=== PATIENT | female | born 1995 | race American Indian/Alaskan Native ===

== ENCOUNTER 2018-03-30 19:41 | Emergency (ER) | payer MEDICAID ==
[2018-03-30] MEDS ORDERED: NACL 0.9% 1000 ML 1,000 ML IV ONE (19:50)
[2018-03-30 20:51] LABS: Basophils % (Auto) 0.5 % (0.0-1.8); Eosinophils # (Auto) 0.1 K/mm3 (0.0-0.4); Eosinophils % (Auto) 0.9 % (0.0-4.3); Hematocrit 37.8 % (30.3-42.9); Hemoglobin 12.9 gm/dl (10.1-14.3); Mean Corpuscular HGB Conc 34 % (30-34); Mean Corpuscular Hemoglobin 31 pg (28-32); Mean Corpuscular Volume 92 fl (79-97); Monocytes # (Auto) 1.1 K/mm3 (0.0-0.8); Monocytes % (Auto) 15.1 % (0.0-7.3); Platelet Count 310 K/mm3 (140-440); Red Blood Count 4.12 M/mm3 (3.65-5.03); Red Cell Distribution Width 13.3 % (13.2-15.2)
[2018-03-30 21:18] LABS: Alanine Aminotransferase 11 units/L (7-56); Albumin 4.1 g/dL (3.9-5); BUN/Creatinine Ratio 22; Blood Urea Nitrogen 13 mg/dL (7-17); Calcium 9.4 mg/dL (8.4-10.2); Hemolysis Index 0; Lipase 38 units/L (13-60)
[2018-03-30 22:06] LABS: HCG Qualitative,Urine Positive (Negative)
[2018-03-30 22:09] LABS: Bilirubin,Urine NEG (Negative); Blood,Urine NEG (Negative); Color,Urine Yellow (Yellow); Mucus,Urine FEW /HPF; Protein,Urine <15 mg/dL mg/dL (Negative); Urobilinogen,Urine < 2.0 mg/dL (<2.0)
--- NOTE | 2018-03-30 22:25 | Emergency Department Report ---
ED Abdominal Pain HPI - General Chief Complaint: Abdominal Pain Stated Complaint: ABDOMINAL PAIN Time Seen by Provider: 03/30/18 22:17 Source: patient Mode of arrival: Ambulatory Limitations: No Limitations - History of Present Illness Initial Comments: Previously healthy 22-year-old woman presents with 1 two-day history of mild to moderate left sided abdominal discomfort, along with some vaginal spotting. Pain is moderate in intensity, 4-5, somewhat aching, occasionally cramping, without radiation, and no secondary symptoms, no fever chills or diaphoresis, no dysuria. She's had mild nausea, only a couple of episodes of mild vomiting, no diarrhea. She's not had a fever chills or diaphoresis. Patient has a variable menstrual cycle, last regular menstrual cycle was mid Jan, 2018, and she only had a couple of days of spotting early to mid February 2018, and had been spotting over the past couple days as well. She notes that her menstrual cycle is generally irregular, and this was not any cause of concern. She is sexually active, does not use contraception. She is 1 para 1, with one mL child , born normally at term, just under one year ago. She is in good general health otherwise, has no significant discomfort at this time, no fever chills or diaphoresis. MD Complaint: abdominal pain Severity scale (0 -10): 5 - Related Data Previous Rx's Medication Instructions Recorded Last Taken Type Metoclopramide HCl [Reglan TAB] 5 mg PO Q6HR PRN #10 tablet 03/31/18 Unknown Rx Allergies Allergy/AdvReac Type Severity Reaction Status Date / Time amoxicillin Allergy Swelling Verified 03/30/18 19:49 Penicillins Allergy Swelling Verified 03/30/18 19:49 ED Review of Systems ROS: Stated complaint: ABDOMINAL PAIN Other details as noted in HPI Comment: All other systems reviewed and negative Constitutional: denies: chills, fever Eyes: denies: eye pain, eye discharge, vision change ENT: denies: throat pain Respiratory: denies: cough, orthopnea Cardiovascular: denies: chest pain, dyspnea on exertion, edema Endocrine: no symptoms reported Gastrointestinal: as per HPI, abdominal pain, nausea, vomiting. denies: diarrhea Genitourinary: denies: urgency, dysuria, frequency, hematuria Musculoskeletal: denies: back pain, joint swelling, arthralgia Skin: denies: rash, lesions Neurological: denies: headache, weakness, paresthesias Psychiatric: denies: anxiety, depression Hematological/Lymphatic: denies: easy bleeding, easy bruising ED Past Medical Hx - Past Medical History Previous Medical History?: No - Surgical History Past Surgical History?: Yes Additional Surgical History: right arm. d&c - Social History Smoking Status: Former Smoker Substance Use Type: None Other Social History: Last menstrual period 02/10/2018 - Medications Home Medications: Home Medications Medication Instructions Recorded Confirmed Last Taken Type Metoclopramide HCl [Reglan TAB] 5 mg PO Q6HR PRN #10 tablet 03/31/18 Unknown Rx ED Physical Exam - General Limitations: No Limitations General appearance: alert, in no apparent distress - Head Head exam: Present: atraumatic, normocephalic - Eye Eye exam: Present: normal appearance - Neck Neck exam: Present: normal inspection, full ROM. Absent: tenderness, meningismus - Respiratory Respiratory exam: Present: normal lung sounds bilaterally. Absent: respiratory distress - Cardiovascular Cardiovascular Exam: Present: regular rate, normal rhythm. Absent: systolic murmur, diastolic murmur, rubs, gallop - GI/Abdominal GI/Abdominal exam: Present: soft, normal bowel sounds. Absent: distended, tenderness, guarding, rebound - Rectal Rectal exam: Present: deferred - Extremities Exam Extremities exam: Present: normal inspection. Absent: pedal edema, calf tenderness - Back Exam Back exam: Present: normal inspection - Neurological Exam Neurological exam: Present: alert, oriented X3 - Psychiatric Psychiatric exam: Present: normal affect, normal mood - Skin Skin exam: Present: warm, dry, intact, normal color. Absent: rash ED Course Vital Signs 03/30/18 03/30/18 19:39 19:45 Temperature 36.9 C 36.9 C Pulse Rate 73 72 Respiratory 18 18 Rate Blood Pressure 115/61 115/61 O2 Sat by Pulse 99 99 Oximetry ED Medical Decision Making - Lab Data Result diagrams: 03/30/18 20:10 03/30/18 20:10 - Radiology Data Radiology results: report reviewed (abdominal and transvaginal ultrasound show a single intrauterine , with pole present, with heart rate of 110 bpm. There is a small ovarian cyst on right, and a small amount of free fluid. ) - Medical Decision Making Patient has confirmed intrauterine , date 6 weeks, 0 days, patient is clinically stable, will be discharged home with oral hydration, recommendation for vitamins and obstetric follow-up. - Differential Diagnosis intrauterine , ectopic , vaginal bleeding, Critical Care Time: No Critical care attestation.: If time is entered above; I have spent that time in minutes in the direct care of this critically ill patient, excluding procedure time. ED Disposition Clinical Impression: Qualifiers: Weeks of gestation: less than 8 weeks Qualified Code(s): Z3A.01 - Less than 8 weeks gestation of Disposition: DC-01 TO HOME OR SELFCARE Is pt being admited?: No Does the pt Need Aspirin: No Condition: Stable Instructions: (ED) Additional Instructions: Follow-up with spice miller in the next week or so, for care. We have prescribed vitamins, continues to start taking these daily as well. Take regular Tylenol for discomfort, and we have prescribed ondansetron if he have any significant nausea or vomiting. Plenty of fluids to maintain hydration. Prescriptions: Metoclopramide HCl [Reglan TAB] 5 mg PO Q6HR PRN #10 tablet PRN Reason: Nausea Referrals: PRIMARY CARE, [Primary Care Provider] - 3-5 Days ELLIE PERRY MD [Staff Physician] - 3-5 Days Time of Disposition: 00:13
--- NOTE | 2018-03-30 23:55 | Ultrasound Report ---
FINAL REPORT PROCEDURE: Transabdominal obstetrical ultrasound. TECHNIQUE: Real-time transabdominal sonography of the uterus, placenta, amniotic fluid, adnexa, and fetus was performed with image documentation. Measurements were obtained to determine age/size. M-mode Doppler was used to document heartbeat. CPT 70598 HISTORY: Abdominal pain, vaginal spotting, new . COMPARISON: No prior studies are available for comparison. FINDINGS: The uterus measures 9.2 centimeters x 5.4 centimeters x 6.6 centimeters. The myometrium is grossly normal. There is an intrauterine gestational sac. A yolk sac is visible. Neither ovary is identified. IMPRESSION: Early intrauterine gestational sac.
--- NOTE | 2018-03-30 23:58 | Ultrasound Report ---
FINAL REPORT PROCEDURE: Transvaginal obstetrical ultrasound. TECHNIQUE: Real-time transvaginal sonography of the uterus, placenta, amniotic fluid, adnexa, and fetus was performed with image documentation. Measurements were obtained to determine age/size. M-mode Doppler was used to document heartbeat. CPT 93085 HISTORY: New , vaginal spotting, pelvic pain. COMPARISON: No prior studies are available for comparison. FINDINGS: There is an intrauterine gestational sac. A yolk sac and pole are visible. Cardiac activity is documented at 110 beats per minute. The crown-rump length measurement is 3.4 millimeters. This indicates a menstrual age of 6 weeks 0 days. The estimated date of confinement is 11/23/2018. There is a small amount of free fluid in the cul-de-sac. Both ovaries appear normal in size. There is normal ovarian blood flow demonstrated by color flow imaging. There is a simple cyst in the left ovary with a maximum diameter of 1.9 centimeters. IMPRESSION: Viable intrauterine with a menstrual age of 6 weeks 0 days. Small left ovarian cyst.
[2018-03-31 00:38] VITALS: BP 105/55
== END 2018-03-31 00:36 | disposition home or self-care (01) ==
LOC: EDBD → ED 19:41
DX: O26.891 Other specified pregnancy related conditions, first trimester (principal); R10.9 Unspecified abdominal pain; O26.851 Spotting complicating pregnancy, first trimester; O21.9 Vomiting of pregnancy, unspecified; Z3A.01 Less than 8 weeks gestation of pregnancy; Z87.891 Personal history of nicotine dependence; Z88.1 Allergy status to other antibiotic agents; Z88.0 Allergy status to penicillin
CPT/HCPCS: 36415; 76801; 76817; 80053; 81001; 81025; 83690; 84702; 85025; 96360; 99284; J7030

== ENCOUNTER 2018-04-02 13:11 | Emergency (ER) | payer MEDICAID ==
[2018-04-02 13:21] VITALS: BP 111/64
--- NOTE | 2018-04-02 13:38 | Emergency Department Report ---
<CLARKE RICHARDSON - Last Filed: 04/02/18 15:13> ED HPI - General Chief complaint: Abdominal Pain Stated complaint: PAIN Time Seen by Provider: 04/02/18 13:35 Source: patient Mode of arrival: Ambulatory Limitations: No Limitations - History of Present Illness Initial comments: This is a 22-year-old female nontoxic, well nourished in appearance, no acute signs of distress presents to the ED with c/o of pelvic pain x6 days. Patient also stated has right upper abdominal and rating to right back x6 days. Patient stated she was seen 6 days ago. Patient describes pain as cramping intermittently with leve of 3/10. Patient denies any vaginal discharge or foul odor. Patient denies any vaginal bleeding. Patient denies any nausea, vomiting, chest pain, shortness of breathe, fever, chills, headache, stiff neck , numbness, tingling. Patient denies any urinary symptoms. Patient stated allergies to PCN but denies any significant PMH. MD Complaint: abdominal pain -: days(s) (6) Location: pelvis Radiation: none Severity: mild Severity scale (0 -10): 3 Quality: cramping Consistency: intermittent Improves with: none Worsens with: none Associated symptoms: abdominal pain. denies: nausea/vomiting, vaginal bleeding , vaginal discharge, dysuria, headache, vision changes, malaise, dysparuenia, rash, seizure, shortness of breath, syncope, weakness Vaginal bleeding: none :: Yes Number of weeks : 6 Pre-leticia care: none - Related Data Previous Rx's Medication Instructions Recorded Last Taken Type Metoclopramide HCl [Reglan TAB] 5 mg PO Q6HR PRN #10 tablet 03/31/18 Unknown Rx Acetaminophen 500 mg PO Q6H PRN #30 tablet 04/02/18 Unknown Rx Allergies Allergy/AdvReac Type Severity Reaction Status Date / Time amoxicillin Allergy Swelling Verified 03/30/18 19:49 Penicillins Allergy Swelling Verified 03/30/18 19:49 ED Review of Systems ROS: Stated complaint: PAIN Other details as noted in HPI Constitutional: denies: chills, fever Eyes: denies: eye pain, eye discharge, vision change ENT: denies: ear pain, throat pain Respiratory: denies: cough, shortness of breath, wheezing Cardiovascular: denies: chest pain, palpitations Endocrine: no symptoms reported Gastrointestinal: abdominal pain. denies: nausea, vomiting, diarrhea Genitourinary: denies: urgency, dysuria, discharge Musculoskeletal: denies: back pain, joint swelling, arthralgia Skin: denies: rash, lesions Neurological: denies: headache, weakness, paresthesias Psychiatric: denies: anxiety, depression Hematological/Lymphatic: denies: easy bleeding, easy bruising ED Past Medical Hx - Past Medical History Previous Medical History?: No - Surgical History Past Surgical History?: Yes Additional Surgical History: right arm. d&c - Social History Smoking Status: Never Smoker Substance Use Type: None - Medications Home Medications: Home Medications Medication Instructions Recorded Confirmed Last Taken Type Metoclopramide HCl [Reglan TAB] 5 mg PO Q6HR PRN #10 tablet 03/31/18 Unknown Rx Acetaminophen 500 mg PO Q6H PRN #30 tablet 04/02/18 Unknown Rx ED Physical Exam - General Limitations: No Limitations General appearance: alert, in no apparent distress - Head Head exam: Present: atraumatic, normocephalic - Eye Eye exam: Present: normal appearance Pupils: Present: normal accommodation - ENT ENT exam: Present: normal exam, mucous membranes moist - Neck Neck exam: Present: normal inspection, full ROM. Absent: tenderness, meningismus, lymphadenopathy - Respiratory Respiratory exam: Present: normal lung sounds bilaterally. Absent: respiratory distress, wheezes, rales, rhonchi, stridor, chest wall tenderness, accessory muscle use, decreased breath sounds, prolonged expiratory - Cardiovascular Cardiovascular Exam: Present: regular rate, normal rhythm, normal heart sounds. Absent: bradycardia, tachycardia, irregular rhythm, systolic murmur, diastolic murmur, rubs, gallop - GI/Abdominal GI/Abdominal exam: Present: soft, tenderness (RUQ), normal bowel sounds. Absent : distended, guarding, rebound, rigid, diminished bowel sounds - Expanded GI/Abdominal Exam Expanded GI/Abdominal exam: Absent: psoas sign, obturator sign, heel tap sign, Herzog's sign, Rovsing's sign, tenderness at Mcburney's Point, ascites - Rectal Rectal exam: Present: deferred - Extremities Exam Extremities exam: Present: normal inspection, full ROM, normal capillary refill. Absent: tenderness - Back Exam Back exam: Present: normal inspection, full ROM. Absent: tenderness, CVA tenderness (R), CVA tenderness (L), muscle spasm, paraspinal tenderness, vertebral tenderness, rash noted - Neurological Exam Neurological exam: Present: alert, oriented X3, normal gait - Psychiatric Psychiatric exam: Present: normal affect, normal mood - Skin Skin exam: Present: warm, dry, intact, normal color. Absent: rash ED Course Vital Signs 04/02/18 13:17 Temperature 98.5 F Pulse Rate 81 Respiratory 16 Rate Blood Pressure 111/64 O2 Sat by Pulse 97 Oximetry - Reevaluation(s) Reevaluation #1: 04/02/18 14:00 Patient is speaking in full sentences with no signs of distress noted. ED Medical Decision Making - Medical Decision Making This is a 22-year-old female that presents with cholelithiasis and related pelvic cramping. Patient is stable and was examined by me. There is slight RUQ quad tenderness. Negative signs of symptoms of appendicitis. US of abdomen obtained and dictated by the radiologist. PAtient has a normal OB and transvaginal US 2 days ago with 110 beats per min and single live IUP. Labs and Ua ordered but patient left without telling anyone. Patient was called back and stated she was outside and I instructed to her that she has abnormal US and needs to come back to the ED and stated she is on her way but patient never came back. I then called patient 2 more times and went to voicemail. Patient left AMA without anyone knowing. Critical care attestation.: If time is entered above; I have spent that time in minutes in the direct care of this critically ill patient, excluding procedure time. ED Disposition Disposition: DC-07 LEFT AGAINST MED ADVICE Is pt being admited?: No Does the pt Need Aspirin: No Condition: Stable Instructions: Acetaminophen (By mouth), Biliary Colic (ED), Abdominal Pain (ED) Additional Instructions: Follow-up with a primary care/OBGYN doctor in 3-5 days or if symptoms worsen and continue return to emergency room as soon as possible. Prescriptions: Acetaminophen 500 mg PO Q6H PRN #30 tablet PRN Reason: Pain , Severe (7-10) Referrals: PRIMARY CARE, [Primary Care Provider] - 3-5 Days DEACON PERRY MD [Staff Physician] - 3-5 Days [facility] [Provider Group] - 3-[address] [facility] [place] [Outside] - 3-5 Days [facility] [Outside] - 3-5 Days Forms: Work/School Release Form(ED) <CAESAR ARTIS - Last Filed: 04/02/18 17:04> ED Medical Decision Making - Medical Decision Making I did not see this patient. I was available for consultation the entire time the patient was in the department. I have reviewed the GOAT HERDER/PAs note and agree with the plan.
[2018-04-02] MEDS ORDERED: TYLENOL PO ONE (13:40)
--- NOTE | 2018-04-02 14:24 | Ultrasound Report ---
ULTRASOUND ABDOMEN COMPLETE: TECHNIQUE: Transabdominal ultrasound with color Doppler interrogation. HISTORY: Abdominal/pelvic pain. COMPARISON: none. FINDINGS: LIVER: Normal. BILIARY SYSTEM: There are a few gallstones in the gallbladder measuring up to 1.2 cm. No abnormal dilatation, wall thickening or surrounding fluid. The CBD measures 3 mm. PANCREAS: Partially obscured by bowel gas. No gross abnormality. SPLEEN: Normal. KIDNEYS: Normal. AORTA/IVC: Normal. ASCITES: None. IMPRESSION: Cholelithiasis. No evidence for acute cholecystitis.
[2018-04-02 14:27] LABS: Bacteria,Urine 1+ /HPF (Negative); Bilirubin,Urine NEG (Negative); Blood,Urine NEG (Negative); Color,Urine Yellow (Yellow); Mucus,Urine FEW /HPF; Protein,Urine <15 mg/dL mg/dL (Negative); Urobilinogen,Urine < 2.0 mg/dL (<2.0)
== END 2018-04-02 15:25 | disposition left against medical advice (07) ==
LOC: ED 13:11
DX: O26.891 Other specified pregnancy related conditions, first trimester (principal); R10.2 Pelvic and perineal pain; Z88.0 Allergy status to penicillin; Z88.1 Allergy status to other antibiotic agents; Z3A.01 Less than 8 weeks gestation of pregnancy
CPT/HCPCS: 76700; 81001

== ENCOUNTER 2018-11-10 12:05 | Outpatient (CLI) | payer MEDICAID ==
[2018-11-10 12:45] VITALS: BP 121/65
== END 2018-11-10 13:59 | disposition home or self-care (01) ==
LOC: TRG 12:05
PROVIDERS: ATTEND Obstetrics & Gynecology
DX: O47.1 False labor at or after 37 completed weeks of gestation (principal); Z3A.39 39 weeks gestation of pregnancy; Z87.891 Personal history of nicotine dependence

== ENCOUNTER 2019-03-08 16:23 | Emergency (ER) | payer MEDICAID ==
[2019-03-08 16:29] VITALS: BP 117/77
[2019-03-08] MEDS ORDERED: XYLOCAINE 1% MPF 5 mL INFILTRATI ONE (18:31)
[2019-03-08] MEDS ORDERED: ULTRAM PO ONE (18:59)
--- NOTE | 2019-03-08 19:10 | Emergency Department Report ---
- General Chief complaint: Skin/Abscess/Foreign Body Stated complaint: BOIL UNDER ARM Time Seen by Provider: 03/08/19 18:31 Source: patient Mode of arrival: Ambulatory Limitations: No Limitations - History of Present Illness Initial comments: Patient's female who presents with left axillary abscess this is a recurrent problem for this patient states that she has 1-2 annually that require I&D there is no fever no chills , left ac 2x3 abscess, erythema pain fluctuant no drainage MD complaint: abscess/boil Onset/Timin -: days(s) Tetanus Up to Date: yes Location: LUE Severity: moderate Severity scale (0 -10): 5 Quality: burning, aching Consistency: constant Improves with: none Worsens with: palpation, movement Context: none Associated symptoms: itching Treatments Prior to Arrival: none - Related Data Previous Rx's Medication Instructions Recorded Last Taken Type Metoclopramide HCl [Reglan TAB] 5 mg PO Q6HR PRN #10 tablet 03/31/18 Unknown Rx Acetaminophen 500 mg PO Q6H PRN #30 tablet 04/02/18 Unknown Rx Sulfamethoxazole/Trimethoprim 1 each PO BID 14 Days #28 tablet 03/08/19 Unknown Rx [Bactrim DS TAB] traMADol [Ultram] 50 mg PO Q6HR PRN #12 tablet 03/08/19 Unknown Rx Allergies Allergy/AdvReac Type Severity Reaction Status Date / Time amoxicillin Allergy Swelling Verified 03/08/19 16:29 Penicillins Allergy Swelling Verified 03/08/19 16:29 Abscess Boil HPI - HPI Chief Complaint: Skin/Abscess/Foreign Body Stated Complaint: BOIL UNDER ARM Time Seen by Provider: 03/08/19 18:31 Location: Upper Extremity (left axillary) History: Yes Pain, Yes Previous History, No Fever, No Purulent Drainage, No Numbness, No Foreign Body, No Insect Bite Home Medications: Previous Rx's Medication Instructions Recorded Last Taken Type Metoclopramide HCl [Reglan TAB] 5 mg PO Q6HR PRN #10 tablet 03/31/18 Unknown Rx Acetaminophen 500 mg PO Q6H PRN #30 tablet 04/02/18 Unknown Rx Sulfamethoxazole/Trimethoprim 1 each PO BID 14 Days #28 tablet 03/08/19 Unknown Rx [Bactrim DS TAB] traMADol [Ultram] 50 mg PO Q6HR PRN #12 tablet 03/08/19 Unknown Rx Allergies/Adverse Reactions: Allergies Allergy/AdvReac Type Severity Reaction Status Date / Time amoxicillin Allergy Swelling Verified 03/08/19 16:29 Penicillins Allergy Swelling Verified 03/08/19 16:29 ED Review of Systems ROS: Stated complaint: BOIL UNDER ARM Other details as noted in HPI Constitutional: denies: chills, fever Eyes: denies: eye pain, eye discharge, vision change ENT: denies: ear pain, throat pain Respiratory: denies: cough, shortness of breath, wheezing Cardiovascular: denies: chest pain, palpitations Endocrine: no symptoms reported Gastrointestinal: as per HPI. denies: abdominal pain, nausea, diarrhea Genitourinary: denies: urgency, dysuria, discharge Musculoskeletal: denies: back pain, joint swelling, arthralgia Skin: lesions (abscess left axillary ) Neurological: denies: headache, weakness, paresthesias Psychiatric: denies: anxiety, depression Hematological/Lymphatic: denies: easy bleeding, easy bruising ED Past Medical Hx - Past Medical History Previous Medical History?: No Hx Hypertension: No Hx Diabetes: No Hx Deep Vein Thrombosis: No Hx Renal Disease: No Hx Sickle Cell Disease: No Hx Seizures: No Hx Asthma: No Hx HIV: No - Surgical History Past Surgical History?: Yes Additional Surgical History: right arm. d&c - Social History Smoking Status: Current Some Day Smoker Substance Use Type: Marijuana - Medications Home Medications: Home Medications Medication Instructions Recorded Confirmed Last Taken Type Metoclopramide HCl [Reglan TAB] 5 mg PO Q6HR PRN #10 tablet 03/31/18 Unknown Rx Acetaminophen 500 mg PO Q6H PRN #30 tablet 04/02/18 Unknown Rx Sulfamethoxazole/Trimethoprim 1 each PO BID 14 Days #28 tablet 03/08/19 Unknown Rx [Bactrim DS TAB] traMADol [Ultram] 50 mg PO Q6HR PRN #12 tablet 03/08/19 Unknown Rx ED Physical Exam - General Limitations: No Limitations General appearance: alert, in no apparent distress - Head Head exam: Present: atraumatic, normocephalic - Eye Eye exam: Present: normal appearance, PERRL Pupils: Present: normal accommodation - ENT ENT exam: Present: mucous membranes moist, TM's normal bilaterally - Neck Neck exam: Present: normal inspection, full ROM. Absent: tenderness - Respiratory Respiratory exam: Present: normal lung sounds bilaterally. Absent: respiratory distress, wheezes, stridor, chest wall tenderness - Cardiovascular Cardiovascular Exam: Present: regular rate, normal rhythm, normal heart sounds. Absent: systolic murmur, diastolic murmur, rubs, gallop - GI/Abdominal GI/Abdominal exam: Present: soft, normal bowel sounds. Absent: distended, tenderness, bruit, hernia - Rectal Rectal exam: Present: deferred - Extremities Exam Extremities exam: Present: normal inspection, full ROM, tenderness (left axillary abscess 2x3 cm fluctuant erythema warm to touch ), normal capillary refill. Absent: pedal edema, joint swelling, calf tenderness - Expanded Upper Extremity Exam Left General: Present: other (axillary abscess as above ) - Back Exam Back exam: Present: normal inspection, full ROM. Absent: tenderness, CVA tenderness (R), CVA tenderness (L), muscle spasm, rash noted - Neurological Exam Neurological exam: Present: alert, CN II-XII intact, normal gait, reflexes normal. Absent: oriented X3 - Psychiatric Psychiatric exam: Present: normal affect, normal mood - Skin Skin exam: Present: warm, dry, intact, normal color, erythema (fluctuant erythema painful to touch ). Absent: rash ED Course Vital Signs 03/08/19 16:25 Pulse Rate 82 Respiratory 16 Rate Blood Pressure 117/77 [Right] O2 Sat by Pulse 100 Oximetry - I & D Left Arm Type of Procedure: Simple Site: left axillary abscess Blade Size: 11 I & D Procedure: betadine prep, sterile dressing applied Progress: left axillary abscess 2x3 cm fluctuant erythema pain warm to touch , site cleaned with betadine solution anesthesia with 1% lidocaine plain x 2 mm, incision with 11 labde scaple x 1 cm, moderate purulent malodorous output , wound irrigated with 40 cc sterile salline pt refused packing plan dc to home wtih rx of bactrim ds po x 14 days follow up with General surgery pt given wound care instructions verbalized agreement and understanding of same. all bleeding is controlled ED Medical Decision Making - Medical Decision Making left axillary abscess for I&D see procedure note, all bleeding is controlled pt for dc to home with rx for bactrim and tramadol will follow up with [facility] in 2 days for wound check pt verbalized agreement and understanding of discharge plan to home in stable condition at this time. rom inact cms intact all bleeding controlled sterile dressing intact Critical care attestation.: If time is entered above; I have spent that time in minutes in the direct care of this critically ill patient, excluding procedure time. ED Disposition Clinical Impression: Abscess of axilla, left Disposition: DC-01 TO HOME OR SELFCARE Is pt being admited?: No Does the pt Need Aspirin: No Condition: Stable Instructions: Abscess (ED) Prescriptions: Sulfamethoxazole/Trimethoprim [Bactrim DS TAB] 1 each PO BID 14 Days #28 tablet traMADol [Ultram] 50 mg PO Q6HR PRN #12 tablet PRN Reason: Pain Referrals: DIANE CRYSTAL MD [Primary Care Provider] - 3-5 Days [facility] [Outside] - 3-5 Days Forms: Work/School Release Form(ED) Time of Disposition: 19:19
== END 2019-03-08 19:23 | disposition home or self-care (01) ==
LOC: ED 16:23
DX: L02.412 Cutaneous abscess of left axilla (principal); F17.200 Nicotine dependence, unspecified, uncomplicated; F12.90 Cannabis use, unspecified, uncomplicated; Z88.1 Allergy status to other antibiotic agents; Z88.0 Allergy status to penicillin; Z79.899 Other long term (current) drug therapy
CPT/HCPCS: 99282

== ENCOUNTER 2021-03-17 00:52 | Emergency (ER) | payer MEDICAID ==
[2021-03-17 01:30] VITALS: BP 119/63
--- NOTE | 2021-03-17 02:55 | Emergency Department Report ---
ED General Adult HPI - General Chief complaint: Earache Stated complaint: LEFT SIDE OF FACE/EARS HURT Time Seen by Provider: 03/17/21 02:45 Source: patient Mode of arrival: Ambulatory Limitations: No Limitations - History of Present Illness Initial comments: Patient a 25-year-old female who presents for left ear pain x4 days. Pain described as 7/10 aching pain exacerbated by movement and palpation. There is no ear drainage. Patient denies throat pain does endorse intermittent headache. There are no dizziness, lightheadedness no nausea or vomiting. - Related Data Previous Rx's Medication Instructions Recorded Last Taken Type Metoclopramide HCl [Reglan TAB] 5 mg PO Q6HR PRN #10 tablet 03/31/18 Unknown Rx Acetaminophen 500 mg PO Q6H PRN #30 tablet 04/02/18 Unknown Rx Sulfamethoxazole/Trimethoprim 1 each PO BID 14 Days #28 tablet 03/08/19 Unknown Rx [Bactrim DS TAB] traMADoL [Ultram] 50 mg PO Q6HR PRN #12 tablet 03/08/19 Unknown Rx Azithromycin Oral Liqd [Zithromax 500 mg PO QDAY 5 Days #60 ml 03/17/21 Unknown Rx 200 MG/5 ML ORAL LIQ] Ibuprofen [Children's Motrin] 800 mg PO Q8H PRN #480 ml 03/17/21 Unknown Rx Allergies Allergy/AdvReac Type Severity Reaction Status Date / Time amoxicillin Allergy Swelling Verified 03/08/19 16:29 Penicillins Allergy Swelling Verified 03/08/19 16:29 ED Review of Systems ROS: Stated complaint: LEFT SIDE OF FACE/EARS HURT Other details as noted in HPI Constitutional: denies: chills, fever Eyes: denies: eye pain, eye discharge, vision change ENT: ear pain Respiratory: denies: cough, shortness of breath, wheezing Cardiovascular: denies: chest pain, palpitations Endocrine: no symptoms reported Gastrointestinal: denies: abdominal pain, nausea, diarrhea Genitourinary: denies: urgency, dysuria, discharge Musculoskeletal: denies: back pain, joint swelling, arthralgia Skin: denies: rash, lesions Neurological: denies: headache, weakness, paresthesias Psychiatric: denies: anxiety, depression Hematological/Lymphatic: denies: easy bleeding, easy bruising ED Past Medical Hx - Past Medical History Hx Hypertension: No Hx Diabetes: No Hx Deep Vein Thrombosis: No Hx Renal Disease: No Hx Sickle Cell Disease: No Hx Seizures: No Hx Asthma: No Hx HIV: No - Surgical History Additional Surgical History: right arm. d&c - Social History Smoking Status: Never Smoker - Medications Home Medications: Home Medications Medication Instructions Recorded Confirmed Last Taken Type Metoclopramide HCl [Reglan TAB] 5 mg PO Q6HR PRN #10 tablet 03/31/18 Unknown Rx Acetaminophen 500 mg PO Q6H PRN #30 tablet 04/02/18 Unknown Rx Sulfamethoxazole/Trimethoprim 1 each PO BID 14 Days #28 tablet 03/08/19 Unknown Rx [Bactrim DS TAB] traMADoL [Ultram] 50 mg PO Q6HR PRN #12 tablet 03/08/19 Unknown Rx Azithromycin Oral Liqd [Zithromax 500 mg PO QDAY 5 Days #60 ml 03/17/21 Unknown Rx 200 MG/5 ML ORAL LIQ] Ibuprofen [Children's Motrin] 800 mg PO Q8H PRN #480 ml 03/17/21 Unknown Rx ED Physical Exam - General Limitations: No Limitations General appearance: alert, in no apparent distress - Head Head exam: Present: atraumatic, normocephalic - Eye Eye exam: Present: PERRL, EOMI Pupils: Present: normal accommodation - ENT ENT exam: Present: normal external ear exam - Expanded ENT Exam Expanded Ear exam: Present: normal external inspection TM/Canal exam: Erythema: Right TM, Left TM Throat exam: Negative: tonsillar erythema, tonsillomegaly, tonsillar exudate - Neck Neck exam: Present: normal inspection, tenderness (No crepitus range of motion intact to all quadrants no posterior vertebral point tenderness.), full ROM, lymphadenopathy - Expanded Neck Exam Expanded Neck exam: Absent: midline deformity, anterior neck swelling, thyroid mass, carotid bruit, tracheal deviation - Respiratory Respiratory exam: Present: normal lung sounds bilaterally. Absent: respiratory distress, wheezes, stridor, chest wall tenderness - Cardiovascular Cardiovascular Exam: Present: regular rate, normal rhythm, normal heart sounds. Absent: systolic murmur, diastolic murmur, rubs, gallop - GI/Abdominal GI/Abdominal exam: Present: soft, normal bowel sounds. Absent: distended, tenderness - Rectal Rectal exam: Present: deferred - Extremities Exam Extremities exam: Present: normal inspection, full ROM, normal capillary refill - Back Exam Back exam: Present: normal inspection, full ROM. Absent: tenderness - Neurological Exam Neurological exam: Present: alert, oriented X3, CN II-XII intact, normal gait - Expanded Neurological Exam Expanded Patient oriented to: Present: person, place, time Speech: Present: fluid speech Best Eye Response (Erika): (4) open spontaneously Best Motor Response (Erika): (6) obeys commands Best Verbal Response (Erika): (5) oriented Erika Total: 15 - Psychiatric Psychiatric exam: Present: normal affect, normal mood - Skin Skin exam: Present: warm, dry, intact, normal color. Absent: rash ED Course Vital Signs 03/17/21 01:28 Temperature 99.3 F Pulse Rate 85 Respiratory 16 Rate Blood Pressure 119/63 O2 Sat by Pulse 99 Oximetry ED Medical Decision Making - Medical Decision Making This is AOM, plan: Augmentin , ibuprofen, follow up with pcp in 2-3 days. Critical care attestation.: If time is entered above; I have spent that time in minutes in the direct care of this critically ill patient, excluding procedure time. ED Disposition Clinical Impression: AOM (acute otitis media) Qualifiers: Otitis media type: serous Laterality: bilateral Recurrence: non-recurrent Qualified Code(s): H65.03 - Acute serous otitis media, bilateral Disposition: TO HOME OR SELFCARE Is pt being admited?: No Does the pt Need Aspirin: No Condition: Stable Instructions: Otitis Media, Adult, [id number] Additional Instructions: Take medications as prescribed, follow-up with your primary care doctor in 2 to 3 days. Prescriptions: Ibuprofen [Children's Motrin] 800 mg PO Q8H PRN #480 ml PRN Reason: pain fever Azithromycin Oral Liqd [Zithromax 200 MG/5 ML ORAL LIQ] 500 mg PO QDAY 5 Days #60 ml Referrals: VANNESA JANSEN MD [Referring] - 3-5 Days Forms: Work/School Release Form(ED) Time of Disposition: 03:05
== END 2021-03-17 03:31 | disposition home or self-care (01) ==
LOC: ED 00:52
DX: H65.02 Acute serous otitis media, left ear (principal); Z88.0 Allergy status to penicillin; Z79.899 Other long term (current) drug therapy; Z98.890 Other specified postprocedural states
CPT/HCPCS: 99282

== ENCOUNTER 2021-04-26 04:37 | Emergency (ER) | payer MEDICAID ==
[2021-04-26 05:45] LABS: Bacteria,Urine 4+ /HPF (Negative); Bilirubin,Urine NEG (Negative); Blood,Urine LG (Negative); Color,Urine Amber (Yellow); Mucus,Urine 3+ /HPF
[2021-04-26 05:49] LABS: Protein,Urine >500 mg/dL (Negative)
[2021-04-26 06:25] LABS: Hematocrit 41.2 % (30.3-42.9); Mean Corpuscular HGB Conc 34 % (30-34); Mean Corpuscular Volume 86 fl (79-97); Platelet Count 261 K/mm3 (140-440); Red Blood Count 4.78 M/mm3 (3.65-5.03); Red Cell Distribution Width 16.2 % (13.2-15.2)
[2021-04-26 06:36] LABS: BUN/Creatinine Ratio 11; Blood Urea Nitrogen 9 mg/dL (7-17); Calcium 9.4 mg/dL (8.4-10.2); Hemolysis Index 1
[2021-04-26 07:50] LABS: Platelet Estimate Consistent w Auto; RBC Morphology Normal; Total Cells Counted 100
[2021-04-26] MEDS ORDERED: ONDANSETRON 4 MG/2 ML INJ IV ONE ×2 (08:05→10:52)
[2021-04-26] MEDS ORDERED: SODIUM CHLORIDE 0.9% 1000 ML 1,000 ML IV ONE ×2 (08:05→10:52)
--- NOTE | 2021-04-26 08:43 | Emergency Department Report ---
ED Abdominal Pain HPI - General Chief Complaint: Abdominal Pain Stated Complaint: STOMACH PAIN Time Seen by Provider: 04/26/21 08:02 Source: patient Mode of arrival: Ambulatory Limitations: No Limitations - History of Present Illness Initial Comments: 25-year-old -[place] female presents to the emergency room complaining of acute abdominal pain is located in the mid abdomen and epigastric area for 1 week. Patient admits to nausea and vomiting and inability to hold fluids down. Patient states her last BM was about 3 days ago and then she started having diarrhea. She reports her last menstrual period a started on 04/25/2021. Patient reports she did a Covid test yesterday and it was negative. MD Complaint: abdominal pain - Related Data Previous Rx's Medication Instructions Recorded Last Taken Type Metoclopramide HCl [Reglan TAB] 5 mg PO Q6HR PRN #10 tablet 03/31/18 Unknown Rx Acetaminophen 500 mg PO Q6H PRN #30 tablet 04/02/18 Unknown Rx Sulfamethoxazole/Trimethoprim 1 each PO BID 14 Days #28 tablet 03/08/19 Unknown Rx [Bactrim DS TAB] traMADoL [Ultram] 50 mg PO Q6HR PRN #12 tablet 03/08/19 Unknown Rx Azithromycin Oral Liqd [Zithromax 500 mg PO QDAY 5 Days #60 ml 03/17/21 Unknown Rx 200 MG/5 ML ORAL LIQ] Ibuprofen [Children's Motrin] 800 mg PO Q8H PRN #480 ml 03/17/21 Unknown Rx Azithromycin [Zithromax Z-PRISCILA] 250 mg PO DAILY #6 tab 04/26/21 Unknown Rx Allergies Allergy/AdvReac Type Severity Reaction Status Date / Time amoxicillin Allergy Swelling Verified 03/08/19 16:29 Penicillins Allergy Swelling Verified 03/08/19 16:29 ED Review of Systems ROS: Stated complaint: STOMACH PAIN Other details as noted in HPI ED Past Medical Hx - Past Medical History Hx Hypertension: No Hx Diabetes: No Hx Deep Vein Thrombosis: No Hx Renal Disease: No Hx Sickle Cell Disease: No Hx Seizures: No Hx Asthma: No Hx HIV: No - Surgical History Additional Surgical History: right arm. d&c - Social History Smoking Status: Never Smoker - Medications Home Medications: Home Medications Medication Instructions Recorded Confirmed Last Taken Type Metoclopramide HCl [Reglan TAB] 5 mg PO Q6HR PRN #10 tablet 03/31/18 Unknown Rx Acetaminophen 500 mg PO Q6H PRN #30 tablet 04/02/18 Unknown Rx Sulfamethoxazole/Trimethoprim 1 each PO BID 14 Days #28 tablet 03/08/19 Unknown Rx [Bactrim DS TAB] traMADoL [Ultram] 50 mg PO Q6HR PRN #12 tablet 03/08/19 Unknown Rx Azithromycin Oral Liqd [Zithromax 500 mg PO QDAY 5 Days #60 ml 03/17/21 Unknown Rx 200 MG/5 ML ORAL LIQ] Ibuprofen [Children's Motrin] 800 mg PO Q8H PRN #480 ml 03/17/21 Unknown Rx Azithromycin [Zithromax Z-PRISCILA] 250 mg PO DAILY #6 tab 04/26/21 Unknown Rx ED Physical Exam - General Limitations: No Limitations ED Course Vital Signs 04/26/21 04/26/21 09:08 09:13 Temperature 98.6 F Pulse Rate 72 Respiratory 18 Rate Blood Pressure 99/60 O2 Sat by Pulse 100 Oximetry ED Medical Decision Making - Lab Data Result diagrams: 04/26/21 05:25 04/26/21 05:25 - [facility] Approval Date 2021-04-26 12:43:21 Other Patient ID My Comment(s) Study Comments [facility] [address] [place] [address] Cat Scan Report Signed Patient: REJI SANCHEZ MR#: [id number] : 1995 Acct:[id number] Age/Sex: 25 / F ADM Date: 04/26/21 Loc: ED Attending Dr: Ordering Physician: ALEN OWENS Date of Service: 04/26/21 Procedure(s): CT abdomen pelvis w con Accession Number(s): [id number] cc: ALEN OWENS CT abdomen pelvis w con INDICATION: epigastric pain/TTP 100 ml omni 300. COMPARISON: None TECHNIQUE: Abdominal and pelvic CT exam performed. All CT scans at this location are performed using CT dose reduction for ALARA by means of automated exposure control. FINDINGS: CT ABDOMEN and PELVIS: Lung Bases: Bilateral multifocal consolidation seen within the visualized lungs. Liver: No significant abnormality. Biliary: No significant abnormality. Spleen: No significant abnormality. Pancreas: No significant abnormality. Adrenals: No significant abnormality. Kidneys: No significant abnormality. Lymphatics: No lymphadenopathy. Vasculature: No significant abnormality. Bowel: No significant abnormality. Normal appendix. Pelvis: No significant abnormality. Osseous Structures: No aggressive osseous lesion. Additional Findings: None IMPRESSION: 1. Patchy incompletely visualized multifocal consolidation in the lungs, most consistent with pneumonia. 2. No significant abnormality of the abdomen or pelvis. Signer Name: Darron Proctor MD Signed: 04/26/2021 12:36 PM Workstation Name: [id number] Transcribed By: CS Dictated By: Darron Proctor MD Electronically Authenticated By: Darron Proctor MD Signed Date/Time: 04/26/21 1236 DD/ 1232 TD/TT: - Medical Decision Making 25-year-old -[place] female presents to the emergency room complaining of acute abdominal pain is located in the mid abdomen and epigastric area for 1 week. Patient admits to nausea and vomiting and inability to hold fluids down. Patient states her last BM was about 3 days ago and then she started having diarrhea. She reports her last menstrual period a started on 04/25/2021. Patient reports she did a Covid test yesterday and it was negative. CTA shows bilateral multifocal lower lung opacities. Patient be treated for pneumonia and will recommend to go get Covid testing. We will place patient on azithromycin. Critical care attestation.: If time is entered above; I have spent that time in minutes in the direct care of this critically ill patient, excluding procedure time. ED Disposition Clinical Impression: Pneumonia Disposition: DC-01 TO HOME OR SELFCARE Is pt being admited?: No Does the pt Need Aspirin: No Condition: Stable Instructions: Abdominal Pain (ED), Bacterial Pneumonia (ED), Prevent the Spread of COVID-19 if You Are Sick - [facility] [place] Additional Instructions: Your CT scan shows that you have pneumonia which is consistent with Covid. I recommend for you to quarantine for the next 14 days. Go get Covid test. Increase your fluid intake ibuprofen or Tylenol as needed for pain. Prescriptions: Azithromycin [Zithromax Z-PRISCILA] 250 mg PO DAILY #6 tab Referrals: PRIMARY CAREMD [Primary Care Provider] - 3-5 Days [facility] [Provider Group] - 3-5 Days Forms: Work/School Release Form(ED) Time of Disposition: 13:40
[2021-04-26 09:12] VITALS: BP 99/60
[2021-04-26] MEDS ORDERED: MORPHINE 4 MG/1 ML INJ IV ONE (10:52)
[2021-04-26 11:53] LABS: HCG Qualitative,Urine Negative (Negative)
--- NOTE | 2021-04-26 12:41 | Cat Scan Report ---
CT abdomen pelvis w con INDICATION: epigastric pain/TTP 100 ml omni 300. COMPARISON: None TECHNIQUE: Abdominal and pelvic CT exam performed. All CT scans at this location are performed using CT dose reduction for ALARA by means of automated exposure control. FINDINGS: CT ABDOMEN and PELVIS: Lung Bases: Bilateral multifocal consolidation seen within the visualized lungs. Liver: No significant abnormality. Biliary: No significant abnormality. Spleen: No significant abnormality. Pancreas: No significant abnormality. Adrenals: No significant abnormality. Kidneys: No significant abnormality. Lymphatics: No lymphadenopathy. Vasculature: No significant abnormality. Bowel: No significant abnormality. Normal appendix. Pelvis: No significant abnormality. Osseous Structures: No aggressive osseous lesion. Additional Findings: None IMPRESSION: 1. Patchy incompletely visualized multifocal consolidation in the lungs, most consistent with pneumon ia. 2. No significant abnormality of the abdomen or pelvis. Signer Name: Darron Proctor MD Signed: 04/26/2021 12:36 PM Workstation Name: [id number]
== END 2021-04-26 14:14 | disposition home or self-care (01) ==
LOC: ED 04:37
DX: J18.9 Pneumonia, unspecified organism (principal); Z98.890 Other specified postprocedural states; Z88.0 Allergy status to penicillin
CPT/HCPCS: 36415; 74177; 80048; 81001; 81025; 83690; 85007; 85025; 87076; 87086; 87186; 96361; 96374; 96375; 96376; 99284; J2270; J2405; J7030; Q9967

== ENCOUNTER 2021-07-20 12:00 | Emergency (ER) | payer MEDICAID ==
[2021-07-20 12:42] VITALS: BP 100/63
--- NOTE | 2021-07-20 12:56 | Emergency Department Report ---
ED Abdominal Pain HPI - General Chief Complaint: Abdominal Pain Stated Complaint: STOMACH AND BACK PAIN Time Seen by Provider: 07/20/21 12:44 Source: patient Mode of arrival: Ambulatory Limitations: No Limitations - History of Present Illness Initial Comments: Patient is 25 years old female with no significant past medical history. Patient presented to the ER complaining of epigastric abdominal pain that radiated to the back. Patient described the pain as sharp. Patient denied any nausea, vomiting or diarrhea. No chest pain or shortness of breath. Patient stated that she used alcohol over the weekend. MD Complaint: abdominal pain -: days(s) (2) Location: epigastric Radiation: suprapubic, back Migration to: no migration Quality: sharp Consistency: intermittent Improves With: nothing Worsens With: nothing Associated Symptoms: denies other symptoms - Related Data Previous Rx's Medication Instructions Recorded Last Taken Type Metoclopramide HCl [Reglan TAB] 5 mg PO Q6HR PRN #10 tablet 03/31/18 Unknown Rx Acetaminophen 500 mg PO Q6H PRN #30 tablet 04/02/18 Unknown Rx Sulfamethoxazole/Trimethoprim 1 each PO BID 14 Days #28 tablet 03/08/19 Unknown Rx [Bactrim DS TAB] traMADoL [Ultram] 50 mg PO Q6HR PRN #12 tablet 03/08/19 Unknown Rx Azithromycin Oral Liqd [Zithromax 500 mg PO QDAY 5 Days #60 ml 03/17/21 Unknown Rx 200 MG/5 ML ORAL LIQ] Ibuprofen [Children's Motrin] 800 mg PO Q8H PRN #480 ml 03/17/21 Unknown Rx Azithromycin [Zithromax Z-PRISCILA] 250 mg PO DAILY #6 tab 04/26/21 Unknown Rx Allergies Allergy/AdvReac Type Severity Reaction Status Date / Time amoxicillin Allergy Swelling Verified 07/20/21 12:38 Penicillins Allergy Swelling Verified 07/20/21 12:38 ED Review of Systems ROS: Stated complaint: STOMACH AND BACK PAIN Other details as noted in HPI Comment: All other systems reviewed and negative Constitutional: denies: chills, fever Cardiovascular: denies: chest pain, palpitations Gastrointestinal: abdominal pain. denies: nausea, vomiting, diarrhea, constipation, hematemesis Musculoskeletal: back pain Neurological: denies: headache, weakness, numbness, paresthesias, confusion ED Past Medical Hx - Past Medical History Hx Hypertension: No Hx Diabetes: No Hx Deep Vein Thrombosis: No Hx Renal Disease: No Hx Sickle Cell Disease: No Hx Seizures: No Hx Asthma: No Hx HIV: No - Surgical History Additional Surgical History: right arm. d&c - Social History Smoking Status: Never Smoker - Medications Home Medications: Home Medications Medication Instructions Recorded Confirmed Last Taken Type Metoclopramide HCl [Reglan TAB] 5 mg PO Q6HR PRN #10 tablet 03/31/18 Unknown Rx Acetaminophen 500 mg PO Q6H PRN #30 tablet 04/02/18 Unknown Rx Sulfamethoxazole/Trimethoprim 1 each PO BID 14 Days #28 tablet 03/08/19 Unknown Rx [Bactrim DS TAB] traMADoL [Ultram] 50 mg PO Q6HR PRN #12 tablet 03/08/19 Unknown Rx Azithromycin Oral Liqd [Zithromax 500 mg PO QDAY 5 Days #60 ml 03/17/21 Unknown Rx 200 MG/5 ML ORAL LIQ] Ibuprofen [Children's Motrin] 800 mg PO Q8H PRN #480 ml 03/17/21 Unknown Rx Azithromycin [Zithromax Z-PRISCILA] 250 mg PO DAILY #6 tab 04/26/21 Unknown Rx ED Physical Exam - General Limitations: No Limitations General appearance: alert, in no apparent distress - Head Head exam: Present: atraumatic, normocephalic, normal inspection - Eye Eye exam: Present: normal appearance - ENT ENT exam: Present: normal exam, normal orophraynx, mucous membranes moist - Neck Neck exam: Present: normal inspection, full ROM. Absent: tenderness, meningismus - Respiratory Respiratory exam: Present: normal lung sounds bilaterally - Cardiovascular Cardiovascular Exam: Present: regular rate, normal rhythm, normal heart sounds - GI/Abdominal GI/Abdominal exam: Present: soft, normal bowel sounds. Absent: distended, tenderness, guarding, rebound, rigid, organomegaly, mass, bruit, pulsatile mass, hernia - Extremities Exam Extremities exam: Present: normal inspection, full ROM, normal capillary refill. Absent: tenderness, pedal edema, joint swelling, calf tenderness - Back Exam Back exam: Present: normal inspection, full ROM. Absent: CVA tenderness (R), CVA tenderness (L) - Neurological Exam Neurological exam: Present: alert, oriented X3, CN II-XII intact, normal gait, reflexes normal. Absent: motor sensory deficit - Psychiatric Psychiatric exam: Present: normal mood - Skin Skin exam: Present: warm, intact, normal color ED Course Vital Signs 07/20/21 07/20/21 07/20/21 12:41 12:42 13:01 Temperature 98 F Pulse Rate 68 Respiratory 18 Rate Blood Pressure 100/63 O2 Sat by Pulse 96 100 Oximetry ED Medical Decision Making - Lab Data Result diagrams: 07/20/21 12:57 07/20/21 12:57 - Medical Decision Making Patient is 25 years old female with no significant past medical history. Patient presented to the ER complaining of epigastric abdominal pain that radiated to the back. Patient described the pain as sharp. Patient denied any nausea, vomiting or diarrhea. No chest pain or shortness of breath. Patient stated that she used alcohol over the weekend. Patient remained stable in the ER with a stable vital sign. Labs reviewed and is unremarkable except for significantly positive UTI. Patient given prescription for Macrobid and Zofran. Patient advised to follow-up with her primary care physician in the next 2 to 3 days and to return to the ER if she develop any new symptoms. Critical care attestation.: If time is entered above; I have spent that time in minutes in the direct care of this critically ill patient, excluding procedure time. ED Disposition Clinical Impression: Acute abdominal pain, UTI (urinary tract infection) Disposition: HOME / SELF CARE / HOMELESS Is pt being admited?: No Condition: Stable Instructions: Abdominal Pain (ED), Urinary Tract Infection, Adult, [id number], Abdominal Pain, Adult, [id number] Referrals: PRIMARY CARE,MD [Primary Care Provider] - 3-5 Days
[2021-07-20 13:18] LABS: Basophils # (Auto) 0.1 K/mm3 (0.0-0.1); Basophils % (Auto) 1.9 % (0.0-1.8); Eosinophils # (Auto) 0.2 K/mm3 (0.0-0.4); Eosinophils % (Auto) 3.9 % (0.0-4.3); Hematocrit 39.2 % (30.3-42.9); Hemoglobin 12.9 gm/dl (10.1-14.3); Lymphocytes # (Auto) 1.4 K/mm3 (1.2-5.4); Lymphocytes % (Auto) 26.9 % (13.4-35.0); Mean Corpuscular HGB Conc 33 % (30-34); Mean Corpuscular Volume 88 fl (79-97); Monocytes # (Auto) 0.5 K/mm3 (0.0-0.8); Monocytes % (Auto) 10.3 % (0.0-7.3); Platelet Count 330 K/mm3 (140-440); Red Blood Count 4.47 M/mm3 (3.65-5.03); Red Cell Distribution Width 14.2 % (13.2-15.2)
[2021-07-20 13:36] LABS: Bilirubin,Urine NEG (Negative); Blood,Urine MOD (Negative); Color,Urine Yellow (Yellow); Mucus,Urine FEW /HPF; Protein,Urine <15 mg/dL mg/dL (Negative); Urobilinogen,Urine < 2.0 mg/dL (<2.0)
[2021-07-20 13:39] LABS: WBC,Urine > 182.0 /HPF (0.0-6.0)
[2021-07-20 13:40] LABS: Alanine Aminotransferase 13 units/L (7-56); BUN/Creatinine Ratio 13; Blood Urea Nitrogen 10 mg/dL (7-17); Calcium 9.3 mg/dL (8.4-10.2); Hemolysis Index 5
[2021-07-20 13:45] LABS: Bilirubin,Direct < 0.2 mg/dL (0-0.2)
== END 2021-07-20 14:05 | disposition home or self-care (01) ==
LOC: ED 12:00
DX: N39.0 Urinary tract infection, site not specified (principal); R10.13 Epigastric pain; Z98.890 Other specified postprocedural states; Z88.0 Allergy status to penicillin
CPT/HCPCS: 36415; 80048; 80076; 81001; 83690; 84703; 85025; 99283

== ENCOUNTER 2021-07-21 10:35 | Emergency (ER) | payer MEDICAID ==
[2021-07-21 10:50] VITALS: BP 125/61
[2021-07-21] MEDS ORDERED: MORPHINE 4 MG/1 ML INJ IV ONE (11:02)
[2021-07-21] MEDS: ONDANSETRON 4 MG/2 ML INJ IV ONE ×2 (11:14→11:29)
--- NOTE | 2021-07-21 11:36 | Emergency Department Report ---
ED General Adult HPI - General Chief complaint: Abdominal Pain Stated complaint: STOMACH PAIN Time Seen by Provider: 07/21/21 10:59 Source: patient Mode of arrival: Ambulatory Limitations: No Limitations - History of Present Illness Initial comments: 25-year-old -[place] female patient presents with complaints of worsening upper abdominal pain today. Patient states her symptoms started 2 to 3 days ago. She was seen here yesterday for this pain. White count was normal CBC. UA showed urinary tract infection. Patient discharged home with Macrobid. She states her symptoms suddenly began to worsen last night. She rates her pain as a 10/10 in severity. She states the pain is mainly now in the right upper portion of her abdomen and beneath her right breast. No history of DVT/PE/cancer, recent long travel/surgeries, cough, hemoptysis, or hormone use per patient. Patient reports she has not eaten in 2 days and denies any vomiting. No stool changes per patient or fever. She denies any prior medical history. Severity scale (0 -10): 10 - Related Data Previous Rx's Medication Instructions Recorded Last Taken Type Metoclopramide HCl [Reglan TAB] 5 mg PO Q6HR PRN #10 tablet 03/31/18 Unknown Rx Acetaminophen 500 mg PO Q6H PRN #30 tablet 04/02/18 Unknown Rx Sulfamethoxazole/Trimethoprim 1 each PO BID 14 Days #28 tablet 03/08/19 Unknown Rx [Bactrim DS TAB] traMADoL [Ultram] 50 mg PO Q6HR PRN #12 tablet 03/08/19 Unknown Rx Azithromycin Oral Liqd [Zithromax 500 mg PO QDAY 5 Days #60 ml 03/17/21 Unknown Rx 200 MG/5 ML ORAL LIQ] Ibuprofen [Children's Motrin] 800 mg PO Q8H PRN #480 ml 03/17/21 Unknown Rx Azithromycin [Zithromax Z-PRISCILA] 250 mg PO DAILY #6 tab 04/26/21 Unknown Rx Nitrofurantoin [place]/M-Cryst 100 mg PO Q12HR #14 capsule 07/20/21 Unknown Rx [Macrobid CAP] Ondansetron [Zofran Odt] 4 mg PO Q8HR PRN #14 tab.rapdis 07/20/21 Unknown Rx Acetaminophen/Codeine [Tylenol 1 tab PO Q6H PRN #15 tab 07/21/21 Unknown Rx /Codeine # 3 tab] Dicyclomine [Bentyl] 20 mg PO QID PRN #40 tablet 07/21/21 Unknown Rx Ibuprofen [Motrin 800 MG tab] 800 mg PO Q8HR PRN #20 tablet 07/21/21 Unknown Rx Ondansetron [Zofran Odt] 4 mg PO Q8HR PRN #15 tab.rapdis 07/21/21 Unknown Rx Allergies Allergy/AdvReac Type Severity Reaction Status Date / Time amoxicillin Allergy Swelling Verified 07/20/21 12:38 Penicillins Allergy Swelling Verified 07/20/21 12:38 ED Review of Systems ROS: Stated complaint: STOMACH PAIN Other details as noted in HPI Constitutional: denies: chills, diaphoresis, fever, malaise, weakness Respiratory: denies: cough, shortness of breath Cardiovascular: as per HPI Gastrointestinal: abdominal pain, nausea. denies: vomiting, diarrhea, constipation, hematemesis, melena, hematochezia Genitourinary: denies: hematuria Skin: denies: change in color Neurological: denies: headache Hematological/Lymphatic: denies: swollen glands ED Past Medical Hx - Past Medical History Previous Medical History?: No Hx Hypertension: No Hx Diabetes: No Hx Deep Vein Thrombosis: No Hx Renal Disease: No Hx Sickle Cell Disease: No Hx Seizures: No Hx Asthma: No Hx HIV: No - Surgical History Past Surgical History?: Yes Additional Surgical History: right arm. d&c - Social History Smoking Status: Never Smoker - Medications Home Medications: Home Medications Medication Instructions Recorded Confirmed Last Taken Type Metoclopramide HCl [Reglan TAB] 5 mg PO Q6HR PRN #10 tablet 03/31/18 Unknown Rx Acetaminophen 500 mg PO Q6H PRN #30 tablet 04/02/18 Unknown Rx Sulfamethoxazole/Trimethoprim 1 each PO BID 14 Days #28 tablet 03/08/19 Unknown Rx [Bactrim DS TAB] traMADoL [Ultram] 50 mg PO Q6HR PRN #12 tablet 03/08/19 Unknown Rx Azithromycin Oral Liqd [Zithromax 500 mg PO QDAY 5 Days #60 ml 03/17/21 Unknown Rx 200 MG/5 ML ORAL LIQ] Ibuprofen [Children's Motrin] 800 mg PO Q8H PRN #480 ml 03/17/21 Unknown Rx Azithromycin [Zithromax Z-PRISCILA] 250 mg PO DAILY #6 tab 04/26/21 Unknown Rx Nitrofurantoin [place]/M-Cryst 100 mg PO Q12HR #14 capsule 07/20/21 Unknown Rx [Macrobid CAP] Ondansetron [Zofran Odt] 4 mg PO Q8HR PRN #14 tab.rapdis 07/20/21 Unknown Rx Acetaminophen/Codeine [Tylenol 1 tab PO Q6H PRN #15 tab 07/21/21 Unknown Rx /Codeine # 3 tab] Dicyclomine [Bentyl] 20 mg PO QID PRN #40 tablet 07/21/21 Unknown Rx Ibuprofen [Motrin 800 MG tab] 800 mg PO Q8HR PRN #20 tablet 07/21/21 Unknown Rx Ondansetron [Zofran Odt] 4 mg PO Q8HR PRN #15 tab.rapdis 07/21/21 Unknown Rx ED Physical Exam - General Limitations: No Limitations General appearance: alert, obese, other (Patient patient appears very uncomfortable and is actively crying) - Head Head exam: Present: atraumatic, normocephalic - Eye Eye exam: Present: normal appearance. Absent: scleral icterus - Neck Neck exam: Present: normal inspection - Respiratory Respiratory exam: Present: normal lung sounds bilaterally. Absent: respiratory distress - Cardiovascular Cardiovascular Exam: Present: regular rate, normal rhythm - GI/Abdominal GI/Abdominal exam: Present: soft, tenderness (Right upper quadrant/epigastric), normal bowel sounds. Absent: rigid - Expanded GI/Abdominal Exam Expanded GI/Abdominal exam: Present: Herzog's sign - Extremities Exam Extremities exam: Present: full ROM. Absent: calf tenderness (No swelling noted to lower extremities bilaterally) - Neurological Exam Neurological exam: Present: alert, oriented X3 - Psychiatric Psychiatric exam: Present: normal affect, normal mood - Skin Skin exam: Present: warm, dry, intact, normal color. Absent: rash ED Course Vital Signs 07/21/21 10:47 Temperature 98.9 F Pulse Rate 88 Respiratory 16 Rate Blood Pressure 125/61 [Left] O2 Sat by Pulse 99 Oximetry ED Medical Decision Making - Lab Data Result diagrams: 07/21/21 11:46 07/21/21 11:46 Lab Results 10/22/21 10/22/21 10/22/21 Range/Units 11:46 11:46 11:46 WBC 5.7 (4.5-11.0) K/mm3 RBC 4.75 (3.65-5.03) M/mm3 Hgb 13.7 (10.1-14.3) gm/dl Hct 42.1 (30.3-42.9) % MCV 89 (79-97) fl MCH 29 (28-32) pg MCHC 33 (30-34) % RDW 14.2 (13.2-15.2) % Plt Count 363 (140-440) K/mm3 Lymph % (Auto) 19.6 (13.4-35.0) % [place] % (Auto) 9.0 H (0.0-7.3) % Eos % (Auto) 1.8 (0.0-4.3) % Baso % (Auto) 0.2 (0.0-1.8) % Lymph # (Auto) 1.1 L (1.2-5.4) K/mm3 [place] # (Auto) 0.5 (0.0-0.8) K/mm3 Eos # (Auto) 0.1 (0.0-0.4) K/mm3 Baso # (Auto) 0.0 (0.0-0.1) K/mm3 Seg Neutrophils % 69.4 (40.0-70.0) % Seg Neutrophils # 4.0 (1.8-7.7) K/mm3 Sodium 135 L (137-145) mmol/L Potassium 4.3 (3.6-5.0) mmol/L Chloride 101.9 (98-107) mmol/L Carbon Dioxide 22 (22-30) mmol/L Anion Gap 15 mmol/L BUN 7 (7-17) mg/dL Creatinine 0.8 (0.6-1.2) mg/dL Estimated GFR > 60 ml/min BUN/Creatinine Ratio 9 % Glucose 102 H (65-100) mg/dL Calcium 9.5 (8.4-10.2) mg/dL Total Bilirubin 0.70 (0.1-1.2) mg/dL AST 17 (5-40) units/L ALT 14 (7-56) units/L Alkaline Phosphatase 75 (35-129) units/L Troponin T < 0.010 (0.00-0.029) ng/mL Total Protein 8.8 H (6.3-8.2) g/dL Albumin 4.2 (3.9-5) g/dL Albumin/Globulin Ratio 0.9 % Lipase 24 (13-60) units/L HCG, Qual Negative (Negative) - Radiology Data Radiology results: report reviewed LIMITED RUQ ABDOMINAL ULTRASOUND INDICATION: severe RUQ pain. COMPARISON: Ultrasound abdomen 04/02/2018. CT abdomen pelvis 04/18/2021.. FINDINGS: Pancreas: Visualized portions show no significant abnormality. Abdominal Aorta: No significant abnormality. IVC: No significant abnormality. Liver: The liver measures 15.7 cm in length. No significant abnormality. Normal hepatopedal blood flow in the main portal vein. Gallbladder: There are a few shadowing stones in the gallbladder and mild sludge. No abnormal distention or wall thickening. No pericholecystic fluid. The ep technologist reports a positive Herzog sign. Bile ducts: No significant abnormality. Common bile duct measures 3 mm. Right kidney: No significant abnormality visualized. Free fluid: None. Additional Findings: None. IMPRESSION: Cholelithiasis. No convincing findings of acute cholecystitis although the ep technologist reports a positive Herzog sign. Please correlate with laboratory values and the clinical presentation of the patient. CHEST 2 VIEWS INDICATION / CLINICAL INFORMATION: right lower chest pain. COMPARISON: None available. FINDINGS: SUPPORT DEVICES: None. HEART / MEDIASTINUM: No significant abnormality. LUNGS / PLEURA: No significant pulmonary abnormality. No significant pleural effusion. No pneumothorax. ADDITIONAL FINDINGS: No significant additional findings. IMPRESSION: 1. No acute abnormality of the chest. - Medical Decision Making 25-year-old -[place] female patient presents with complaints of worsening upper abdominal pain today. Patient states her symptoms started 2 to 3 days ago. She was seen here yesterday for this pain. White count was normal CBC. UA showed urinary tract infection. Patient discharged home with Macrobid. She states her symptoms suddenly began to worsen last night. She rates her pain as a 10/10 in severity. She states the pain is mainly now in the right upper portion of her abdomen and beneath her right breast. No history of DVT/PE/cancer, recent long travel/surgeries, cough, hemoptysis, or hormone use per patient. Patient reports she has not eaten in 2 days and denies any vomiting. No stool changes per patient or fever. She denies any prior medical history. Ultrasound shows cholelithiasis without cholecystitis. CBC is normal. No significant abnormalities noted on CMP or lipase. Discussed patient with Dr. Jacinto who also reviewed patient's lab findings and image results. Given patient's pain is controlled and she is afebrile, nontachycardic, and has a normal white count, he states patient is stable for discharge home and follow-up outpatient with general surgery. Discussed in detail with patient signs and symptoms that should prompt immediate return to the ED, she verbalizes understanding. Also discussed necessary dietary changes to control biliary colic. Critical care attestation.: If time is entered above; I have spent that time in minutes in the direct care of this critically ill patient, excluding procedure time. ED Disposition Clinical Impression: Cholelithiases, Biliary colic Disposition: HOME / SELF CARE / HOMELESS Is pt being admited?: No Condition: Stable Instructions: Abdominal Pain (ED), Cholelithiasis, Biliary Colic, Adult, Gallbladder Eating Plan Prescriptions: Dicyclomine [Bentyl] 20 mg PO QID PRN #40 tablet PRN Reason: cramping pain Ibuprofen [Motrin 800 MG tab] 800 mg PO Q8HR PRN #20 tablet PRN Reason: pain Acetaminophen/Codeine [Tylenol /Codeine # 3 tab] 1 tab PO Q6H PRN #15 tab PRN Reason: Pain , Severe (7-10) Ondansetron [Zofran Odt] 4 mg PO Q8HR PRN #15 tab.rapdis PRN Reason: Nausea Referrals: KENDY ENRIQUEZ DO [Staff Physician] - 3-5 Days Forms: Work/School Release Form(ED)
[2021-07-21] MEDS ORDERED: HYDROmorphone 1 MG/1 ML INJ IV ONE (11:50)
[2021-07-21] MEDS ORDERED: ONDANSETRON 4 MG/2 ML INJ IV ONE (11:51)
[2021-07-21 12:05] LABS: Basophils % (Auto) 0.2 % (0.0-1.8); Eosinophils # (Auto) 0.1 K/mm3 (0.0-0.4); Eosinophils % (Auto) 1.8 % (0.0-4.3); Hematocrit 42.1 % (30.3-42.9); Hemoglobin 13.7 gm/dl (10.1-14.3); Lymphocytes # (Auto) 1.1 K/mm3 (1.2-5.4); Lymphocytes % (Auto) 19.6 % (13.4-35.0); Mean Corpuscular HGB Conc 33 % (30-34); Mean Corpuscular Volume 89 fl (79-97); Monocytes # (Auto) 0.5 K/mm3 (0.0-0.8); Platelet Count 363 K/mm3 (140-440); Red Blood Count 4.75 M/mm3 (3.65-5.03); Red Cell Distribution Width 14.2 % (13.2-15.2)
--- NOTE | 2021-07-21 12:19 | Ultrasound Report ---
LIMITED RUQ ABDOMINAL ULTRASOUND INDICATION: severe RUQ pain. COMPARISON: Ultrasound abdomen 04/02/2018. CT abdomen pelvis 04/18/2021.. FINDINGS: Pancreas: Visualized portions show no significant abnormality. Abdominal Aorta: No significant abnormality. IVC: No significant abnormality. Liver: The liver measures 15.7 cm in length. No significant abnormality. Normal hepatopedal blood fl ow in the main portal vein. Gallbladder: There are a few shadowing stones in the gallbladder and mild sludge. No abnormal distent ion or wall thickening. No pericholecystic fluid. The interventional technologist reports a positive Murp hy sign. Bile ducts: No significant abnormality. Common bile duct measures 3 mm. Right kidney: No significant abnormality visualized. Free fluid: None. Additional Findings: None. IMPRESSION: Cholelithiasis. No convincing findings of acute cholecystitis although the interventional technologist re ports a positive Herzog sign. Please correlate with laboratory values and the clinical presentation o f the patient. Signer Name: Huy Leach Jr, MD Signed: 07/21/2021 12:14 PM Workstation Name: [id number]
[2021-07-21 12:30] LABS: Alanine Aminotransferase 14 units/L (7-56); Albumin 4.2 g/dL (3.9-5); BUN/Creatinine Ratio 9; Blood Urea Nitrogen 7 mg/dL (7-17); Calcium 9.5 mg/dL (8.4-10.2); Hemolysis Index 5
[2021-07-21] MEDS ORDERED: KETOROLAC 30 MG/1 ML INJ IV ONE (13:07)
--- NOTE | 2021-07-21 13:31 | XRay Report ---
CHEST 2 VIEWS INDICATION / CLINICAL INFORMATION: right lower chest pain. COMPARISON: None available. FINDINGS: SUPPORT DEVICES: None. HEART / MEDIASTINUM: No significant abnormality. LUNGS / PLEURA: No significant pulmonary abnormality. No significant pleural effusion. No pneumothora x. ADDITIONAL FINDINGS: No significant additional findings. IMPRESSION: 1. No acute abnormality of the chest. Signer Name: See Barraza MD Signed: 07/21/2021 1:27 PM Workstation Name: [id number]
== END 2021-07-21 15:06 | disposition home or self-care (01) ==
LOC: ED 10:35
DX: K80.20 Calculus of gallbladder without cholecystitis without obstruction (principal); K80.51 Calculus of bile duct without cholangitis or cholecystitis with obstruction; Z98.890 Other specified postprocedural states; Z88.0 Allergy status to penicillin
CPT/HCPCS: 36415; 71046; 76705; 80053; 83690; 84484; 84703; 85025; 96374; 96375; 99284; J1170; J1885; J2270; J2405

== ENCOUNTER 2021-08-06 21:59 | Emergency (ER) | payer MEDICAID ==
--- NOTE | 2021-08-06 23:13 | Emergency Department Report ---
ED Abdominal Pain HPI - General Chief Complaint: Abdominal Pain Stated Complaint: STOMACH PAIN Time Seen by Provider: 08/06/21 23:07 Source: patient Mode of arrival: Ambulatory Limitations: No Limitations - History of Present Illness Initial Comments: Patient presents with right upper quadrant pain. She has been having a sharp and stabbing right upper quadrant pain that radiates into the right back and right chest. She is nauseated associate with this. Pain actually started several weeks ago. She has been seen here twice in the last 2 weeks. Both times she was told that she has gallstones. She was told that if her symptoms worsen or if it got infected she would need surgery. She came in tonight because she just could not get comfortable. She admits that she took the pain pills we had prescribed previously without symptomatic improvement. There is no history of recent travel or trauma. She has had no hematemesis or coffee-ground emesis. Pain is worse depending on position and food. She has had no fevers. There has been no chills. She has no recent travel or trauma. Gallbladder disease does not run in her family as far she is aware Severity scale (0 -10): 10 - Related Data Previous Rx's Medication Instructions Recorded Last Taken Type Metoclopramide HCl [Reglan TAB] 5 mg PO Q6HR PRN #10 tablet 03/31/18 Unknown Rx Ibuprofen [Children's Motrin] 800 mg PO Q8H PRN #480 ml 03/17/21 Unknown Rx Ondansetron [Zofran Odt] 4 mg PO Q8HR PRN #14 tab.rapdis 07/20/21 Unknown Rx Dicyclomine [Bentyl] 20 mg PO QID PRN #40 tablet 07/21/21 Unknown Rx Ibuprofen [Motrin 800 MG tab] 800 mg PO Q8HR PRN #20 tablet 07/21/21 Unknown Rx Ondansetron [Zofran Odt] 4 mg PO Q8HR PRN #15 tab.rapdis 07/21/21 Unknown Rx HYDROcodone/APAP 7.5-325 [[place] 1 each PO Q6HR PRN #14 tablet 08/07/21 Unknown Rx 7.5/325] Allergies Allergy/AdvReac Type Severity Reaction Status Date / Time amoxicillin Allergy Swelling Verified 07/20/21 12:38 Penicillins Allergy Swelling Verified 07/20/21 12:38 ED Review of Systems ROS: Stated complaint: STOMACH PAIN Other details as noted in HPI Comment: All other systems reviewed and negative Constitutional: denies: fever Eyes: denies: vision change ENT: denies: throat pain Respiratory: denies: cough Cardiovascular: denies: palpitations Endocrine: denies: unexplained weight loss Gastrointestinal: as per HPI Genitourinary: denies: dysuria Musculoskeletal: as per HPI Skin: denies: rash Neurological: denies: headache Hematological/Lymphatic: denies: easy bruising ED Past Medical Hx - Past Medical History Previous Medical History?: Yes Hx Hypertension: No Hx Diabetes: No Hx Deep Vein Thrombosis: No Hx Renal Disease: No Hx Sickle Cell Disease: No Hx Seizures: No Hx Asthma: No Hx HIV: No Additional medical history: "Gallbladder" - Surgical History Past Surgical History?: Yes Additional Surgical History: right arm. d&c - Family History Family history: hypertension - Social History Smoking Status: Current Every Day Smoker (We discussed tobacco cessation x3 minutes) Substance Use Type: None - Medications Home Medications: Home Medications Medication Instructions Recorded Confirmed Last Taken Type Metoclopramide HCl [Reglan TAB] 5 mg PO Q6HR PRN #10 tablet 03/31/18 Unknown Rx Ibuprofen [Children's Motrin] 800 mg PO Q8H PRN #480 ml 03/17/21 Unknown Rx Ondansetron [Zofran Odt] 4 mg PO Q8HR PRN #14 tab.rapdis 07/20/21 Unknown Rx Dicyclomine [Bentyl] 20 mg PO QID PRN #40 tablet 07/21/21 Unknown Rx Ibuprofen [Motrin 800 MG tab] 800 mg PO Q8HR PRN #20 tablet 07/21/21 Unknown Rx Ondansetron [Zofran Odt] 4 mg PO Q8HR PRN #15 tab.rapdis 07/21/21 Unknown Rx HYDROcodone/APAP 7.5-325 [[place] 1 each PO Q6HR PRN #14 tablet 08/07/21 Unknown Rx 7.5/325] ED Physical Exam - General Limitations: No Limitations, Other (Pulse ox noted and normal) General appearance: alert, in distress (Moderate discomfort), obese - Head Head exam: Present: atraumatic, normocephalic, normal inspection - Eye Eye exam: Present: normal appearance, EOMI. Absent: scleral icterus - ENT ENT exam: Present: normal exam, mucous membranes moist - Neck Neck exam: Present: normal inspection. Absent: meningismus - Respiratory Respiratory exam: Present: normal lung sounds bilaterally. Absent: respiratory distress - Cardiovascular Cardiovascular Exam: Present: regular rate, normal rhythm - GI/Abdominal GI/Abdominal exam: Present: soft, tenderness (Right upper quadrant), guarding (Voluntary). Absent: rebound - Extremities Exam Extremities exam: Present: normal capillary refill. Absent: pedal edema - Back Exam Back exam: Absent: CVA tenderness (R), CVA tenderness (L) - Neurological Exam Neurological exam: Present: alert, oriented X3, CN II-XII intact, normal gait. Absent: motor sensory deficit - Psychiatric Psychiatric exam: Present: normal affect, normal mood - Skin Skin exam: Present: warm, dry ED Course Vital Signs 08/06/21 23:01 Temperature 98.4 F Pulse Rate 72 Respiratory 18 Rate Blood Pressure 114/80 [Right] O2 Sat by Pulse 100 Oximetry - Reevaluation(s) Reevaluation #1: 08/06/21 23:13 IV, labs, and ultrasound were ordered. Old records reviewed. Reevaluation #2: 08/07/21 02:04 Labs and ultrasound were noted. Patient did not have evidence of acute hepatitis or pancreatitis. She does not have cholecystitis. There is no evidence of cholangitis. She does not have a common duct dilatation to suggest a retained stone or impacted stone. Case was discussed with surgery, Dr. Sahni. He will see the patient in follow-up. ED Medical Decision Making - Lab Data Result diagrams: 08/06/21 23:19 08/06/21 23:19 Rhythm strip: Normal sinus rhythm without ectopy per monitor observed in seconds. - Medical Decision Making Patient presents with abdominal pain and has evidence of biliary colic. She does not have evidence of retained stone. There is no evidence of biliary pancreatitis or gallstone hepatitis. She does not have cholangitis. There is no evidence of acute cholecystitis. She has been referred to surgery. This is been discussed with surgery who is happy to see her in follow-up. She was instructed on a bland diet and low-fat diet. She was given analgesics and referred for follow-up. Critical Care Time: No Critical care attestation.: If time is entered above; I have spent that time in minutes in the direct care of this critically ill patient, excluding procedure time. ED Disposition Clinical Impression: Right upper quadrant pain, Biliary colic Disposition: HOME / SELF CARE / HOMELESS Is pt being admited?: No Condition: Stable Instructions: Abdominal Pain (ED), Biliary Colic, Adult Additional Instructions: Drink plenty water. Have a low-fat diet. Return for problems. Follow-up with the surgeon as directed. Do not drive while taking pain medication. Prescriptions: HYDROcodone/APAP 7.5-325 [[place] 7.5/325] 1 each PO Q6HR PRN #14 tablet PRN Reason: Pain
[2021-08-06] MEDS ORDERED: SODIUM CHLORIDE 0.9% 1000 ML 1,000 ML IV ONE (23:14)
[2021-08-06] MEDS ORDERED: MORPHINE 4 MG/1 ML INJ IV ONE (23:14)
[2021-08-06] MEDS ORDERED: ONDANSETRON 4 MG/2 ML INJ IV ONE (23:14)
[2021-08-06 23:39] LABS: Basophils % (Auto) 0.5 % (0.0-1.8); Eosinophils # (Auto) 0.1 K/mm3 (0.0-0.4); Eosinophils % (Auto) 1.6 % (0.0-4.3); Hematocrit 39.6 % (30.3-42.9); Hemoglobin 12.9 gm/dl (10.1-14.3); Lymphocytes # (Auto) 1.7 K/mm3 (1.2-5.4); Lymphocytes % (Auto) 25.2 % (13.4-35.0); Mean Corpuscular HGB Conc 33 % (30-34); Mean Corpuscular Volume 90 fl (79-97); Monocytes # (Auto) 0.7 K/mm3 (0.0-0.8); Monocytes % (Auto) 10.7 % (0.0-7.3); Platelet Count 335 K/mm3 (140-440); Red Cell Distribution Width 14.4 % (13.2-15.2)
[2021-08-07 00:04] LABS: Alanine Aminotransferase 12 units/L (7-56); Albumin 4.3 g/dL (3.9-5); BUN/Creatinine Ratio 11; Blood Urea Nitrogen 9 mg/dL (7-17); Calcium 9.8 mg/dL (8.4-10.2); Hemolysis Index 6
--- NOTE | 2021-08-07 01:07 | Ultrasound Report ---
ULTRASOUND ABDOMEN, LIMITED INDICATION / CLINICAL INFORMATION: Right upper quadrant pain. COMPARISON: Ultrasound dated 07/21/21 FINDINGS: PANCREAS: Obscured by bowel gas. LIVER: No significant abnormality. GALLBLADDER: Several echogenic gallstones are unchanged. No gallbladder wall thickening or edema. BILE DUCTS: No significant abnormality. Common bile duct measures 4 mm. FREE FLUID: None. ADDITIONAL FINDINGS: None. IMPRESSION: 1. Cholelithiasis without sonographic evidence for acute cholecystitis. No change. Signer Name: Sloane Ragland MD Signed: 08/07/2021 1:02 AM Workstation Name: [id number]
[2021-08-07] MEDS ORDERED: KETOROLAC 30 MG/1 ML INJ IV ONE (02:10)
[2021-08-07 02:59] VITALS: BP 112/78
== END 2021-08-07 03:00 | disposition home or self-care (01) ==
LOC: ED 21:59
DX: K80.50 Calculus of bile duct without cholangitis or cholecystitis without obstruction (principal); F17.200 Nicotine dependence, unspecified, uncomplicated
CPT/HCPCS: 36415; 76705; 80053; 83690; 84703; 85025; 96361; 96374; 96375; 99284; J1885; J2270; J2405; J7030

== ENCOUNTER 2021-08-29 20:28 | Emergency (ER) | payer MEDICAID ==
--- NOTE | 2021-08-29 21:34 | Emergency Department Report ---
ED Abdominal Pain HPI - General Chief Complaint: Abdominal Pain Stated Complaint: ABD PAIN/POSS Time Seen by Provider: 08/29/21 21:17 Source: patient Mode of arrival: Ambulatory Limitations: No Limitations - History of Present Illness Initial Comments: Patient 25-year-old -[place] female who presents with bilateral upper quadrant abdominal pain. Patient denies nausea vomiting there is no back pain there has been no fever no chills. Pain is described as nagging 4/10. Pain is exacerbated by p.o. intake. Pain is relieved by nothing tried. Patient denies history of GERD. Last menstrual cycle unknown. MD Complaint: abdominal pain - Related Data Previous Rx's Medication Instructions Recorded Last Taken Type Metoclopramide HCl [Reglan TAB] 5 mg PO Q6HR PRN #10 tablet 03/31/18 Unknown Rx Ibuprofen [Children's Motrin] 800 mg PO Q8H PRN #480 ml 03/17/21 Unknown Rx Ondansetron [Zofran Odt] 4 mg PO Q8HR PRN #14 tab.rapdis 07/20/21 Unknown Rx Dicyclomine [Bentyl] 20 mg PO QID PRN #40 tablet 07/21/21 Unknown Rx Ibuprofen [Motrin 800 MG tab] 800 mg PO Q8HR PRN #20 tablet 07/21/21 Unknown Rx Ondansetron [Zofran Odt] 4 mg PO Q8HR PRN #15 tab.rapdis 07/21/21 Unknown Rx HYDROcodone/APAP 7.5-325 [[place] 1 each PO Q6HR PRN #14 tablet 08/07/21 Unknown Rx 7.5/325] Metoclopramide [Reglan] 10 mg PO ACHS PRN #12 tablet 08/30/21 Unknown Rx diphenhydrAMINE [Benadryl CAP] 25 mg PO QHS PRN #30 capsule 08/30/21 Unknown Rx Allergies Allergy/AdvReac Type Severity Reaction Status Date / Time amoxicillin Allergy Swelling Verified 08/29/21 20:32 Penicillins Allergy Swelling Verified 08/29/21 20:32 ED Review of Systems ROS: Stated complaint: ABD PAIN/POSS Other details as noted in HPI Constitutional: denies: chills, fever Eyes: denies: eye pain, eye discharge, vision change ENT: denies: ear pain, throat pain Respiratory: denies: cough, shortness of breath, wheezing Cardiovascular: denies: chest pain, palpitations Endocrine: no symptoms reported Gastrointestinal: abdominal pain. denies: nausea, vomiting, diarrhea, constipation, hematemesis, melena, hematochezia Genitourinary: denies: urgency, dysuria, discharge Musculoskeletal: denies: back pain, joint swelling, arthralgia Skin: denies: rash, lesions Neurological: denies: headache, weakness, paresthesias Psychiatric: denies: anxiety, depression Hematological/Lymphatic: denies: easy bleeding, easy bruising ED Past Medical Hx - Past Medical History Hx Hypertension: No Hx Diabetes: No Hx Deep Vein Thrombosis: No Hx Renal Disease: No Hx Sickle Cell Disease: No Hx Seizures: No Hx Asthma: No Hx HIV: No Additional medical history: "Gallbladder" - Surgical History Additional Surgical History: right arm. d&c - Social History Smoking Status: Current Every Day Smoker (We discussed tobacco cessation x3 minutes) Substance Use Type: None - Medications Home Medications: Home Medications Medication Instructions Recorded Confirmed Last Taken Type Metoclopramide HCl [Reglan TAB] 5 mg PO Q6HR PRN #10 tablet 03/31/18 Unknown Rx Ibuprofen [Children's Motrin] 800 mg PO Q8H PRN #480 ml 03/17/21 Unknown Rx Ondansetron [Zofran Odt] 4 mg PO Q8HR PRN #14 tab.rapdis 07/20/21 Unknown Rx Dicyclomine [Bentyl] 20 mg PO QID PRN #40 tablet 07/21/21 Unknown Rx Ibuprofen [Motrin 800 MG tab] 800 mg PO Q8HR PRN #20 tablet 07/21/21 Unknown Rx Ondansetron [Zofran Odt] 4 mg PO Q8HR PRN #15 tab.rapdis 07/21/21 Unknown Rx HYDROcodone/APAP 7.5-325 [[place] 1 each PO Q6HR PRN #14 tablet 08/07/21 Unknown Rx 7.5/325] Metoclopramide [Reglan] 10 mg PO ACHS PRN #12 tablet 08/30/21 Unknown Rx diphenhydrAMINE [Benadryl CAP] 25 mg PO QHS PRN #30 capsule 08/30/21 Unknown Rx ED Physical Exam - General Limitations: No Limitations General appearance: alert, in no apparent distress - Head Head exam: Present: atraumatic, normocephalic - Eye Eye exam: Present: normal appearance, EOMI Pupils: Present: normal accommodation - ENT ENT exam: Present: mucous membranes moist - Neck Neck exam: Present: normal inspection, full ROM. Absent: tenderness - Respiratory Respiratory exam: Present: normal lung sounds bilaterally. Absent: respiratory distress, wheezes, stridor, chest wall tenderness - Cardiovascular Cardiovascular Exam: Present: regular rate, normal rhythm, normal heart sounds. Absent: systolic murmur, diastolic murmur, rubs, gallop - GI/Abdominal GI/Abdominal exam: Present: soft, normal bowel sounds. Absent: distended, tenderness, guarding, rebound, rigid, bruit, hernia - Rectal Rectal exam: Present: deferred - Extremities Exam Extremities exam: Present: normal inspection, full ROM, normal capillary refill - Back Exam Back exam: Present: normal inspection, full ROM, CVA tenderness (L). Absent: CVA tenderness (R) - Neurological Exam Neurological exam: Present: alert, oriented X3, CN II-XII intact, normal gait - Psychiatric Psychiatric exam: Present: normal affect, normal mood - Skin Skin exam: Present: warm, dry, intact, normal color. Absent: rash ED Course Vital Signs 08/29/21 20:29 Temperature 98.3 F Pulse Rate 69 Respiratory 18 Rate Blood Pressure 112/51 [Right] O2 Sat by Pulse 100 Oximetry ED Medical Decision Making - Lab Data Result diagrams: 08/29/21 21:25 08/29/21 21:25 Labs 08/29/21 08/29/21 08/29/21 21:25 21:25 21:46 WBC 7.3 RBC 4.18 Hgb 12.2 Hct 37.8 MCV 90 MCH 29 MCHC 32 RDW 14.7 Plt Count 330 Lymph % (Auto) 31.4 [place] % (Auto) 12.6 H Eos % (Auto) 0.9 Baso % (Auto) 0.3 Lymph # (Auto) 2.3 [place] # (Auto) 0.9 H Eos # (Auto) 0.1 Baso # (Auto) 0.0 Seg Neutrophils % 54.8 Seg Neutrophils # 4.0 Sodium 137 Potassium 3.8 Chloride 102.3 Carbon Dioxide 22 Anion Gap 17 BUN 9 Creatinine 0.8 Estimated GFR > 60 BUN/Creatinine Ratio 11 Glucose 87 Calcium 9.3 Total Bilirubin 0.50 AST 15 ALT 13 Alkaline Phosphatase 62 Total Protein 7.9 Albumin 4.3 Albumin/Globulin Ratio 1.2 Lipase 36 HCG, Quant Urine Color Yellow Urine Turbidity Slightly-cloudy Urine pH 6.0 Ur Specific [place] 1.019 Urine Protein <15 mg/dl Urine Glucose (UA) Neg Urine Ketones Tr Urine Blood Sm Urine Nitrite Pos Urine Bilirubin Neg Urine Urobilinogen < 2.0 Ur Leukocyte Esterase Neg Urine WBC (Auto) 9.0 H Urine RBC (Auto) 2.0 U Epithel Cells (Auto) 7.0 Urine Mucus Few Urine HCG, Qual Positive A 08/30/21 00:24 WBC RBC Hgb Hct MCV MCH MCHC RDW Plt Count Lymph % (Auto) [place] % (Auto) Eos % (Auto) Baso % (Auto) Lymph # (Auto) [place] # (Auto) Eos # (Auto) Baso # (Auto) Seg Neutrophils % Seg Neutrophils # Sodium Potassium Chloride Carbon Dioxide Anion Gap BUN Creatinine Estimated GFR BUN/Creatinine Ratio Glucose Calcium Total Bilirubin AST ALT Alkaline Phosphatase Total Protein Albumin Albumin/Globulin Ratio Lipase HCG, Quant 4642 H Urine Color Urine Turbidity Urine pH Ur Specific [place] Urine Protein Urine Glucose (UA) Urine Ketones Urine Blood Urine Nitrite Urine Bilirubin Urine Urobilinogen Ur Leukocyte Esterase Urine WBC (Auto) Urine RBC (Auto) U Epithel Cells (Auto) Urine Mucus Urine HCG, Qual - Radiology Data Radiology results: report reviewed, image reviewed ULTRASOUND ABDOMEN, LIMITED (RIGHT UPPER QUADRANT) INDICATION: RUQ pain. COMPARISON: 08/06/21. FINDINGS: PANCREAS: The pancreatic head is normal. The pancreatic body and tail are obscured by bowel gas. LIVER: 15.6 cm in length with a normal echo pattern, no focal lesion and normal directional blood flow in the main portal vein. GALLBLADDER: Multiple gallstones. The gallbladder is normal in size without wall thickening. BILE DUCTS: No significant abnormality. Common bile duct measures 2.9 mm. FREE FLUID: None. ADDITIONAL FINDINGS: None. IMPRESSION: Cholelithiasis without sonographic evidence of acute cholecystitis. No significant change since 08/06/21. Signer Name: Steve Xiao MD Signed: 08/30/2021 12:26 AM Workstation Name: [id number] Transcribed By: RT Dictated By: Steve Xiao MD Electronically Authenticated By: Steve Xiao MD Signed Date/Time: 08/30/21 0026 - Medical Decision Making Ultrasound confirms gallstones multiple, no intrauterine seen, hCG is 4642 point, abdomen pain is improved. Plan DC home with prescriptions, follow- up with [facility] BUSINESS [facility]NAGER, follow-up with GI, continue medications as prescribed, return to emergency department should symptoms worsen. Patient is currently ANO x3 tolerating p.o. intake without symptoms. Critical care attestation.: If time is entered above; I have spent that time in minutes in the direct care of this critically ill patient, excluding procedure time. ED Disposition Clinical Impression: Gall stones, affected by growth restriction Disposition: HOME / SELF CARE / HOMELESS Is pt being admited?: No Does the pt Need Aspirin: No Condition: Stable Instructions: Abdominal Pain (ED), Cholelithiasis, [id number], and Sex Additional Instructions: Take medications as prescribed, follow-up with T[facility]ITORY BUSINESS MANAGER in 2 to 3 days. Follow-up with [facility] in 2 to 3 days. Return to emergency should symptoms w orsen. Patient verbalized agreement and understanding with discharge plan. Patient will be DC'd home good condition at this time with Prescriptions: diphenhydrAMINE [Benadryl CAP] 25 mg PO QHS PRN #30 capsule PRN Reason: Nausea And Vomiting Metoclopramide [Reglan] 10 mg PO ACHS PRN #12 tablet PRN Reason: Nausea And Vomiting Referrals: [facility] [Provider Group] - 3-5 Days Forms: Work/School Release Form(ED) Time of Disposition: 02:19
[2021-08-29 21:46] LABS: Basophils % (Auto) 0.3 % (0.0-1.8); Eosinophils # (Auto) 0.1 K/mm3 (0.0-0.4); Eosinophils % (Auto) 0.9 % (0.0-4.3); Hematocrit 37.8 % (30.3-42.9); Hemoglobin 12.2 gm/dl (10.1-14.3); Lymphocytes # (Auto) 2.3 K/mm3 (1.2-5.4); Lymphocytes % (Auto) 31.4 % (13.4-35.0); Mean Corpuscular HGB Conc 32 % (30-34); Mean Corpuscular Volume 90 fl (79-97); Monocytes # (Auto) 0.9 K/mm3 (0.0-0.8); Monocytes % (Auto) 12.6 % (0.0-7.3); Platelet Count 330 K/mm3 (140-440); Red Blood Count 4.18 M/mm3 (3.65-5.03); Red Cell Distribution Width 14.7 % (13.2-15.2)
[2021-08-29 21:58] LABS: Alanine Aminotransferase 13 units/L (7-56); Albumin 4.3 g/dL (3.9-5); BUN/Creatinine Ratio 11; Blood Urea Nitrogen 9 mg/dL (7-17); Calcium 9.3 mg/dL (8.4-10.2); Hemolysis Index 4
[2021-08-29 22:16] LABS: Bilirubin,Urine NEG (Negative); Blood,Urine SM (Negative); Color,Urine Yellow (Yellow); Mucus,Urine FEW /HPF; Protein,Urine <15 mg/dL mg/dL (Negative); Urobilinogen,Urine < 2.0 mg/dL (<2.0)
[2021-08-29 22:20] LABS: HCG Qualitative,Urine Positive (Negative)
--- NOTE | 2021-08-30 00:30 | Ultrasound Report ---
ULTRASOUND ABDOMEN, LIMITED (RIGHT UPPER QUADRANT) INDICATION: RUQ pain. COMPARISON: 08/06/21. FINDINGS: PANCREAS: The pancreatic head is normal. The pancreatic body and tail are obscured by bowel gas. LIVER: 15.6 cm in length with a normal echo pattern, no focal lesion and normal directional blood terrance w in the main portal vein. GALLBLADDER: Multiple gallstones. The gallbladder is normal in size without wall thickening. BILE DUCTS: No significant abnormality. Common bile duct measures 2.9 mm. FREE FLUID: None. ADDITIONAL FINDINGS: None. IMPRESSION: Cholelithiasis without sonographic evidence of acute cholecystitis. No significant change since 08/06/21. Signer Name: Steve Xiao MD Signed: 08/30/2021 12:26 AM Workstation Name: [id number]
[2021-08-30 02:56] VITALS: BP 123/69
== END 2021-08-30 02:55 | disposition home or self-care (01) ==
LOC: ED 20:28
DX: O36.5990 Maternal care for other known or suspected poor fetal growth, unspecified trimester, not applicable or unspecified (principal); O99.619 Diseases of the digestive system complicating pregnancy, unspecified trimester; Z98.890 Other specified postprocedural states; F17.200 Nicotine dependence, unspecified, uncomplicated; Z88.1 Allergy status to other antibiotic agents; Z3A.00 Weeks of gestation of pregnancy not specified; Z88.0 Allergy status to penicillin
CPT/HCPCS: 36415; 76705; 80053; 81001; 81025; 83690; 84702; 85025; 87076; 87086; 87186; 99284

== ENCOUNTER 2021-09-04 00:42 | Emergency (ER) | payer MEDICAID ==
[2021-09-04 02:32] LABS: Basophils % (Auto) 0.4 % (0.0-1.8); Eosinophils # (Auto) 0.1 K/mm3 (0.0-0.4); Eosinophils % (Auto) 0.9 % (0.0-4.3); Hematocrit 37.7 % (30.3-42.9); Hemoglobin 12.4 gm/dl (10.1-14.3); Lymphocytes # (Auto) 2.4 K/mm3 (1.2-5.4); Lymphocytes % (Auto) 31.1 % (13.4-35.0); Mean Corpuscular HGB Conc 33 % (30-34); Mean Corpuscular Volume 90 fl (79-97); Monocytes % (Auto) 13.1 % (0.0-7.3); Platelet Count 334 K/mm3 (140-440); Red Blood Count 4.17 M/mm3 (3.65-5.03); Red Cell Distribution Width 14.4 % (13.2-15.2)
[2021-09-04 02:36] LABS: Alanine Aminotransferase 12 units/L (7-56); Albumin 4.1 g/dL (3.9-5); Blood Urea Nitrogen 15 mg/dL (7-17); Calcium 9.5 mg/dL (8.4-10.2); Hemolysis Index 6
[2021-09-04 02:39] LABS: BUN/Creatinine Ratio 25
[2021-09-04 03:25] LABS: Bacteria,Urine 3+ /HPF (Negative); Bilirubin,Urine NEG (Negative); Blood,Urine LG (Negative); Color,Urine Yellow (Yellow); Mucus,Urine FEW /HPF; Urobilinogen,Urine < 2.0 mg/dL (<2.0)
[2021-09-04] MEDS ORDERED: NITROFURANTOIN MONOHYD/M-CRYST 100 MG CAP PO ONE (04:10)
--- NOTE | 2021-09-04 06:38 | Emergency Department Report ---
ED Female HPI - General Chief complaint: Vaginal Bleeding Stated complaint: Pain/Bleeding while Source: patient Mode of arrival: Ambulatory Limitations: No Limitations - History of Present Illness Initial comments: Patient is a A0 25-year-old -[place] female with no past medical history presents to the ED with acute onset persistent vaginal spotting for the last 4 hours. Patient states that she went to the bathroom to void urine and when she wiped she noticed some blood in the toilet tissue. Patient states that she came to the ED for evaluation of her to rule out any sign of miscarriage. Patient denies of abdominal pain, nausea, vomiting, dysuria, urinary frequency and urgency, fever, chills, back pain, chest pain or shortness of breath, vaginal discharge, cough or sore throat. MD Complaint: vaginal bleeding -: Sudden - Related Data Previous Rx's Medication Instructions Recorded Last Taken Type Metoclopramide HCl [Reglan TAB] 5 mg PO Q6HR PRN #10 tablet 03/31/18 Unknown Rx Ibuprofen [Children's Motrin] 800 mg PO Q8H PRN #480 ml 03/17/21 Unknown Rx Ondansetron [Zofran Odt] 4 mg PO Q8HR PRN #14 tab.rapdis 07/20/21 Unknown Rx Dicyclomine [Bentyl] 20 mg PO QID PRN #40 tablet 07/21/21 Unknown Rx Ibuprofen [Motrin 800 MG tab] 800 mg PO Q8HR PRN #20 tablet 07/21/21 Unknown Rx Ondansetron [Zofran Odt] 4 mg PO Q8HR PRN #15 tab.rapdis 07/21/21 Unknown Rx HYDROcodone/APAP 7.5-325 [[place] 1 each PO Q6HR PRN #14 tablet 08/07/21 Unknown Rx 7.5/325] Metoclopramide [Reglan] 10 mg PO ACHS PRN #12 tablet 08/30/21 Unknown Rx diphenhydrAMINE [Benadryl CAP] 25 mg PO QHS PRN #30 capsule 08/30/21 Unknown Rx Nitrofurantoin [place]/M-Cryst 100 mg PO Q12HR #14 capsule 09/04/21 Unknown Rx [Macrobid CAP] Allergies Allergy/AdvReac Type Severity Reaction Status Date / Time amoxicillin Allergy Swelling Verified 08/29/21 20:32 Penicillins Allergy Swelling Verified 08/29/21 20:32 ED Review of Systems ROS: Stated complaint: Pain/Bleeding while Other details as noted in HPI Constitutional: denies: chills, fever Eyes: denies: eye pain, eye discharge, vision change ENT: denies: ear pain, throat pain Respiratory: denies: cough, shortness of breath, wheezing Cardiovascular: denies: chest pain, palpitations Endocrine: no symptoms reported Gastrointestinal: denies: abdominal pain, nausea, vomiting, diarrhea Genitourinary: abnormal menses (Vaginal bleeding). denies: urgency, dysuria, discharge Musculoskeletal: denies: back pain, joint swelling, arthralgia Skin: denies: rash, lesions Neurological: denies: headache, weakness, paresthesias Psychiatric: denies: anxiety, depression Hematological/Lymphatic: denies: easy bleeding, easy bruising ED Past Medical Hx - Past Medical History Previous Medical History?: No Hx Hypertension: No Hx Diabetes: No Hx Deep Vein Thrombosis: No Hx Renal Disease: No Hx Sickle Cell Disease: No Hx Seizures: No Hx Asthma: No Hx HIV: No Additional medical history: "Gallbladder" - Surgical History Past Surgical History?: Yes Additional Surgical History: right arm. d&c - Social History Smoking Status: Current Every Day Smoker (We discussed tobacco cessation x3 minutes) Substance Use Type: None - Medications Home Medications: Home Medications Medication Instructions Recorded Confirmed Last Taken Type Metoclopramide HCl [Reglan TAB] 5 mg PO Q6HR PRN #10 tablet 03/31/18 Unknown Rx Ibuprofen [Children's Motrin] 800 mg PO Q8H PRN #480 ml 03/17/21 Unknown Rx Ondansetron [Zofran Odt] 4 mg PO Q8HR PRN #14 tab.rapdis 07/20/21 Unknown Rx Dicyclomine [Bentyl] 20 mg PO QID PRN #40 tablet 07/21/21 Unknown Rx Ibuprofen [Motrin 800 MG tab] 800 mg PO Q8HR PRN #20 tablet 07/21/21 Unknown Rx Ondansetron [Zofran Odt] 4 mg PO Q8HR PRN #15 tab.rapdis 07/21/21 Unknown Rx HYDROcodone/APAP 7.5-325 [[place] 1 each PO Q6HR PRN #14 tablet 08/07/21 Unknown Rx 7.5/325] Metoclopramide [Reglan] 10 mg PO ACHS PRN #12 tablet 08/30/21 Unknown Rx diphenhydrAMINE [Benadryl CAP] 25 mg PO QHS PRN #30 capsule 08/30/21 Unknown Rx Nitrofurantoin [place]/M-Cryst 100 mg PO Q12HR #14 capsule 09/04/21 Unknown Rx [Macrobid CAP] ED Physical Exam - General Limitations: No Limitations General appearance: alert, in no apparent distress - Head Head exam: Present: atraumatic, normocephalic, normal inspection - Eye Eye exam: Present: normal appearance, PERRL, EOMI Pupils: Present: normal accommodation - ENT ENT exam: Present: normal exam, normal orophraynx, mucous membranes moist, TM's normal bilaterally, normal external ear exam - Neck Neck exam: Present: normal inspection, full ROM. Absent: tenderness - Respiratory Respiratory exam: Present: normal lung sounds bilaterally. Absent: respiratory distress, wheezes, rhonchi, chest wall tenderness - Cardiovascular Cardiovascular Exam: Present: regular rate, normal rhythm. Absent: systolic murmur, diastolic murmur, rubs, gallop - GI/Abdominal GI/Abdominal exam: Present: soft, normal bowel sounds. Absent: tenderness, guarding, hyperactive bowel sounds, hypoactive bowel sounds, organomegaly - Bi-manual exam: Present: other (Pelvic exam deferred at this time) - Extremities Exam Extremities exam: Present: normal inspection, full ROM, normal capillary refill - Back Exam Back exam: Present: normal inspection, full ROM. Absent: tenderness, CVA tenderness (R), CVA tenderness (L), muscle spasm, paraspinal tenderness - Neurological Exam Neurological exam: Present: alert, oriented X3, CN II-XII intact, normal gait, reflexes normal - Psychiatric Psychiatric exam: Present: normal affect, normal mood - Skin Skin exam: Present: warm, dry, intact, normal color. Absent: rash ED Course Vital Signs 09/04/21 01:04 Temperature 99.2 F Pulse Rate 75 Respiratory 16 Rate Blood Pressure 120/60 [Right] O2 Sat by Pulse 100 Oximetry ED Medical Decision Making - Lab Data Result diagrams: 09/04/21 01:23 09/04/21 01:55 - Medical Decision Making This is a A0 25-year-old -[place] female with no past medical history presents to the ED with acute onset persistent vaginal spotting for the last 4 hours. Patient states that she went to the bathroom to void urine and when she wiped she noticed some blood in the toilet tissue. Patient states that she came to the ED for evaluation of her to rule out any sign of miscarriage. In the ED, patient is alert and oriented x3 and is not in distress. Lab test results were reviewed and are all nonactionable except for urinalysis that showed significant urinary tract infection. Transvaginal ultrasound showed a single IUP of approximately 6 weeks but no heart tones were identified, possibly because the is still too early. Patient stated that she had an appointment with her OPERATING THEATRE TECHNICIAN physician in 3 days time. Patient was therefore discharged from the ED on prescription of oral antibiotics and advised to follow-up with OPERATING THEATRE TECHNICIAN physician as previously scheduled. Patient was advised return to the ED immediately if symptoms get worse. - Differential Diagnosis Threatened miscarriage; UTI; ovarian cyst; subchorionic bleed; kidney stone Critical care attestation.: If time is entered above; I have spent that time in minutes in the direct care of this critically ill patient, excluding procedure time. ED Disposition Clinical Impression: Threatened miscarriage, Acute urinary tract infection, Vaginal bleeding in patient after first trimester Disposition: 01 HOME / SELF CARE / HOMELESS Is pt being admited?: No Does the pt Need Aspirin: No Condition: Stable Instructions: Threatened Miscarriage, [id number], Vaginal Bleeding During , First Trimester, [id number] Additional Instructions: The vaginal ultrasound showed a single IUP of approximately 6 weeks. No heart tones were identified as the may be too early. Lab test results showed acute urinary tract infection. The rest of the lab test results were nonactionable. Therefore maintain a complete pelvic rest, take medications for urinary tract infection and follow-up with your OPERATING THEATRE TECHNICIAN physician as previously scheduled. return to the ED immediately if symptoms get worse. Prescriptions: Nitrofurantoin [place]/M-Cryst [Macrobid CAP] 100 mg PO Q12HR #14 capsule Referrals: SARAH OVIEDO MD [Staff Physician] - 3-5 Days Time of Disposition: 06:39 Print Language: [place]AD[place]AN
[2021-09-04 06:54] VITALS: BP 116/78
--- NOTE | 2021-09-04 07:04 | Ultrasound Report ---
ULTRASOUND OBSTETRIC REASON FOR EXAM: Vaginal bleeding, approx 8 weeks gestation TECHNIQUE: Transabdominal and transvaginal ultrasound was performed to evaluate a first trimester pre gnancy. COMPARISON: None available. FINDINGS: FINDINGS: There is an intrauterine gestational sac with mean sac diameter measuring 1.2 cm, corresponding to a gestational age of 6 weeks and 1 day. There is a yolk sac without discrete pole identified. Sma ll area of perigestational hemorrhage measures 1.6 cm, not involving greater than 50% of the sac cir cumference MATERNAL FINDINGS: The uterus demonstrates an otherwise unremarkable sonographic appearance. The right ovary demonstrates an unremarkable sonographic appearance. The left ovary is not visualized. No significant cystic or solid mass in the left adnexa. Cul-de-sac: There is no free fluid. IMPRESSION: 1. Intrauterine of uncertain viability. Gestational sac with yolk sac. No discrete p ole identified. This could be related to early gestation, as mean sac diameter corresponds to a gesta tional age of 6 weeks 1 day. Recommend continued follow-up with beta hCG and pelvic sonography, as cl inically indicated. 2. There is a small perigestational hemorrhage which may account for vaginal bleeding. Signer Name: Carl Zimmerman MD Signed: 09/04/2021 6:59 AM Workstation Name: [id number]
== END 2021-09-04 06:55 | disposition home or self-care (01) ==
LOC: ED 00:42
DX: O20.0 Threatened abortion (principal); N39.0 Urinary tract infection, site not specified; F17.200 Nicotine dependence, unspecified, uncomplicated
CPT/HCPCS: 36415; 76801; 80053; 81001; 84702; 84703; 85025; 86900; 86901; 87076; 87086; 87186; 99284

== ENCOUNTER 2021-10-21 15:14 | Emergency (ER) | payer MEDICAID ==
--- NOTE | 2021-10-21 20:06 | Emergency Department Report ---
ED General Adult HPI - General Chief complaint: Abdominal Pain Stated complaint: DIFFICULTY BREATHING Time Seen by Provider: 10/21/21 17:57 Source: patient Mode of arrival: Ambulatory Limitations: No Limitations - History of Present Illness Radiation: non-radiation Quality: dull Consistency: constant Improves with: none Worsens with: none Associated Symptoms: denies other symptoms. denies: confusion, chest pain, cough Treatments Prior to Arrival: none - Related Data Previous Rx's Medication Instructions Recorded Last Taken Type Metoclopramide HCl [Reglan TAB] 5 mg PO Q6HR PRN #10 tablet 03/31/18 Unknown Rx Ibuprofen [Children's Motrin] 800 mg PO Q8H PRN #480 ml 03/17/21 Unknown Rx Ondansetron [Zofran Odt] 4 mg PO Q8HR PRN #14 tab.rapdis 07/20/21 Unknown Rx Dicyclomine [Bentyl] 20 mg PO QID PRN #40 tablet 07/21/21 Unknown Rx Ibuprofen [Motrin 800 MG tab] 800 mg PO Q8HR PRN #20 tablet 07/21/21 Unknown Rx Ondansetron [Zofran Odt] 4 mg PO Q8HR PRN #15 tab.rapdis 07/21/21 Unknown Rx HYDROcodone/APAP 7.5-325 [[place] 1 each PO Q6HR PRN #14 tablet 08/07/21 Unknown Rx 7.5/325] Metoclopramide [Reglan] 10 mg PO ACHS PRN #12 tablet 08/30/21 Unknown Rx diphenhydrAMINE [Benadryl CAP] 25 mg PO QHS PRN #30 capsule 08/30/21 Unknown Rx Nitrofurantoin [place]/M-Cryst 100 mg PO Q12HR #14 capsule 09/04/21 Unknown Rx [Macrobid CAP] Allergies Allergy/AdvReac Type Severity Reaction Status Date / Time amoxicillin Allergy Swelling Verified 10/21/21 17:26 Penicillins Allergy Swelling Verified 10/21/21 17:26 ED Review of Systems ROS: Stated complaint: DIFFICULTY BREATHING Other details as noted in HPI Comment: All other systems reviewed and negative ED Past Medical Hx - Past Medical History Hx Hypertension: No Hx Diabetes: No Hx Deep Vein Thrombosis: No Hx Renal Disease: No Hx Sickle Cell Disease: No Hx Seizures: No Hx Asthma: No Hx HIV: No Additional medical history: "Gallbladder" - Surgical History Additional Surgical History: right arm. d&c - Social History Smoking Status: Current Every Day Smoker (We discussed tobacco cessation x3 minutes) Substance Use Type: None - Medications Home Medications: Home Medications Medication Instructions Recorded Confirmed Last Taken Type Metoclopramide HCl [Reglan TAB] 5 mg PO Q6HR PRN #10 tablet 03/31/18 Unknown Rx Ibuprofen [Children's Motrin] 800 mg PO Q8H PRN #480 ml 03/17/21 Unknown Rx Ondansetron [Zofran Odt] 4 mg PO Q8HR PRN #14 tab.rapdis 07/20/21 Unknown Rx Dicyclomine [Bentyl] 20 mg PO QID PRN #40 tablet 07/21/21 Unknown Rx Ibuprofen [Motrin 800 MG tab] 800 mg PO Q8HR PRN #20 tablet 07/21/21 Unknown Rx Ondansetron [Zofran Odt] 4 mg PO Q8HR PRN #15 tab.rapdis 07/21/21 Unknown Rx HYDROcodone/APAP 7.5-325 [[place] 1 each PO Q6HR PRN #14 tablet 08/07/21 Unknown Rx 7.5/325] Metoclopramide [Reglan] 10 mg PO ACHS PRN #12 tablet 08/30/21 Unknown Rx diphenhydrAMINE [Benadryl CAP] 25 mg PO QHS PRN #30 capsule 08/30/21 Unknown Rx Nitrofurantoin [place]/M-Cryst 100 mg PO Q12HR #14 capsule 09/04/21 Unknown Rx [Macrobid CAP] ED Physical Exam - General Limitations: No Limitations General appearance: alert, in no apparent distress - Head Head exam: Present: atraumatic, normocephalic, normal inspection - Eye Eye exam: Present: normal appearance, PERRL, EOMI - ENT ENT exam: Present: mucous membranes moist, TM's normal bilaterally - Neck Neck exam: Present: normal inspection, full ROM - Respiratory Respiratory exam: Present: normal lung sounds bilaterally. Absent: respiratory distress - Cardiovascular Cardiovascular Exam: Present: regular rate, normal rhythm. Absent: systolic murmur, diastolic murmur, rubs, gallop - GI/Abdominal GI/Abdominal exam: Present: soft, normal bowel sounds, other ( no acute pain) - Extremities Exam Extremities exam: Present: normal inspection - Back Exam Back exam: Present: normal inspection - Neurological Exam Neurological exam: Present: alert, oriented X3 - Psychiatric Psychiatric exam: Present: normal affect, normal mood - Skin Skin exam: Present: warm, dry, intact, normal color. Absent: rash ED Course Vital Signs 10/21/21 17:25 Temperature 98 F Pulse Rate 93 H Respiratory 16 Rate O2 Sat by Pulse 99 Oximetry Critical care attestation.: If time is entered above; I have spent that time in minutes in the direct care of this critically ill patient, excluding procedure time. ED Disposition Clinical Impression: Cephalgia, Hayfever Disposition: HOME / SELF CARE / HOMELESS Is pt being admited?: No Does the pt Need Aspirin: No Condition: Stable Instructions: Abdominal Pain (ED), Allergic Rhinitis, Adult, [id number], Cough, Adult Additional Instructions: Please follow-up with DIRECTOR OF RECRUITMENT for other treatment options to manage your allergic rhinitis currently only cleared to utilize Tylenol for your headaches
== END 2021-10-21 21:10 | disposition home or self-care (01) ==
LOC: ED 15:14
DX: R51.9 Headache, unspecified (principal); J30.1 Allergic rhinitis due to pollen; Z98.890 Other specified postprocedural states; F17.200 Nicotine dependence, unspecified, uncomplicated; Z88.0 Allergy status to penicillin; Z88.1 Allergy status to other antibiotic agents
CPT/HCPCS: 99282

== ENCOUNTER 2021-10-31 03:53 | Emergency (ER) | payer MEDICAID ==
[2021-10-31] MEDS ORDERED: LIDOCAINE (1%) 10 MG/1 ML VIAL 20 ML MDV INFILTRATI ONE (05:49)
--- NOTE | 2021-10-31 06:06 | Emergency Department Report ---
- General Chief complaint: Skin/Abscess/Foreign Body Stated complaint: RT UNDER ARM PAIN Source: patient Mode of arrival: Ambulatory Limitations: No Limitations - History of Present Illness Initial comments: 25-year-old female presents to the ED complaining abscess noted to the right armpit x3 days. Patient states that she is 14 weeks . She states that she was previous evaluated at [facility] 2 days ago and was not treated for abscess. Patient denies any fever or chills. Patient states she has been applying warm compress to area to expel but unsuccessful. Patient states that pain is 8 out of 10. Patient is alert and oriented x4. MD complaint: abscess/boil Onset/Timin -: days(s) Severity: moderate Severity scale (0 -10): 7 Quality: aching Consistency: constant Worsens with: movement Associated symptoms: denies other symptoms Treatments Prior to Arrival: attempted to drain pus at, NSAID - Related Data Previous Rx's Medication Instructions Recorded Last Taken Type Metoclopramide HCl [Reglan TAB] 5 mg PO Q6HR PRN #10 tablet 03/31/18 Unknown Rx Ibuprofen [Children's Motrin] 800 mg PO Q8H PRN #480 ml 03/17/21 Unknown Rx Ondansetron [Zofran Odt] 4 mg PO Q8HR PRN #14 tab.rapdis 07/20/21 Unknown Rx Dicyclomine [Bentyl] 20 mg PO QID PRN #40 tablet 07/21/21 Unknown Rx Ibuprofen [Motrin 800 MG tab] 800 mg PO Q8HR PRN #20 tablet 07/21/21 Unknown Rx Ondansetron [Zofran Odt] 4 mg PO Q8HR PRN #15 tab.rapdis 07/21/21 Unknown Rx HYDROcodone/APAP 7.5-325 [[place] 1 each PO Q6HR PRN #14 tablet 08/07/21 Unknown Rx 7.5/325] Metoclopramide [Reglan] 10 mg PO ACHS PRN #12 tablet 08/30/21 Unknown Rx diphenhydrAMINE [Benadryl CAP] 25 mg PO QHS PRN #30 capsule 08/30/21 Unknown Rx Nitrofurantoin [place]/M-Cryst 100 mg PO Q12HR #14 capsule 09/04/21 Unknown Rx [Macrobid CAP] Amoxicillin/Potassium Clav 1 each PO BID 10 Days #20 tab 10/31/21 Unknown Rx [Augmentin 875-125 Tablet] Allergies Allergy/AdvReac Type Severity Reaction Status Date / Time No Known Allergies Allergy Verified 10/31/21 06:25 Abscess Boil HPI - HPI Chief Complaint: Skin/Abscess/Foreign Body Stated Complaint: RT UNDER ARM PAIN Home Medications: Previous Rx's Medication Instructions Recorded Last Taken Type Metoclopramide HCl [Reglan TAB] 5 mg PO Q6HR PRN #10 tablet 03/31/18 Unknown Rx Ibuprofen [Children's Motrin] 800 mg PO Q8H PRN #480 ml 03/17/21 Unknown Rx Ondansetron [Zofran Odt] 4 mg PO Q8HR PRN #14 tab.rapdis 07/20/21 Unknown Rx Dicyclomine [Bentyl] 20 mg PO QID PRN #40 tablet 07/21/21 Unknown Rx Ibuprofen [Motrin 800 MG tab] 800 mg PO Q8HR PRN #20 tablet 07/21/21 Unknown Rx Ondansetron [Zofran Odt] 4 mg PO Q8HR PRN #15 tab.rapdis 07/21/21 Unknown Rx HYDROcodone/APAP 7.5-325 [[place] 1 each PO Q6HR PRN #14 tablet 08/07/21 Unknown Rx 7.5/325] Metoclopramide [Reglan] 10 mg PO ACHS PRN #12 tablet 08/30/21 Unknown Rx diphenhydrAMINE [Benadryl CAP] 25 mg PO QHS PRN #30 capsule 08/30/21 Unknown Rx Nitrofurantoin [place]/M-Cryst 100 mg PO Q12HR #14 capsule 09/04/21 Unknown Rx [Macrobid CAP] Amoxicillin/Potassium Clav 1 each PO BID 10 Days #20 tab 10/31/21 Unknown Rx [Augmentin 875-125 Tablet] Allergies/Adverse Reactions: Allergies Allergy/AdvReac Type Severity Reaction Status Date / Time No Known Allergies Allergy Verified 10/31/21 06:25 ED Review of Systems ROS: Stated complaint: RT UNDER ARM PAIN Other details as noted in HPI Constitutional: denies: chills, fever Eyes: denies: eye pain, eye discharge, vision change ENT: denies: ear pain, throat pain Respiratory: denies: cough, shortness of breath, wheezing Cardiovascular: denies: chest pain, palpitations Endocrine: no symptoms reported Gastrointestinal: denies: abdominal pain, nausea, diarrhea Genitourinary: denies: urgency, dysuria, discharge Musculoskeletal: denies: back pain, joint swelling, arthralgia Skin: lesions Neurological: denies: headache, weakness, paresthesias Psychiatric: denies: anxiety, depression Hematological/Lymphatic: denies: easy bleeding, easy bruising ED Past Medical Hx - Past Medical History Hx Hypertension: No Hx Diabetes: No Hx Deep Vein Thrombosis: No Hx Renal Disease: No Hx Sickle Cell Disease: No Hx Seizures: No Hx Asthma: No Hx HIV: No Additional medical history: "Gallbladder" - Surgical History Additional Surgical History: right arm. d&c - Social History Smoking Status: Current Every Day Smoker (We discussed tobacco cessation x3 minutes) Substance Use Type: None - Medications Home Medications: Home Medications Medication Instructions Recorded Confirmed Last Taken Type Metoclopramide HCl [Reglan TAB] 5 mg PO Q6HR PRN #10 tablet 03/31/18 Unknown Rx Ibuprofen [Children's Motrin] 800 mg PO Q8H PRN #480 ml 03/17/21 Unknown Rx Ondansetron [Zofran Odt] 4 mg PO Q8HR PRN #14 tab.rapdis 07/20/21 Unknown Rx Dicyclomine [Bentyl] 20 mg PO QID PRN #40 tablet 07/21/21 Unknown Rx Ibuprofen [Motrin 800 MG tab] 800 mg PO Q8HR PRN #20 tablet 07/21/21 Unknown Rx Ondansetron [Zofran Odt] 4 mg PO Q8HR PRN #15 tab.rapdis 07/21/21 Unknown Rx HYDROcodone/APAP 7.5-325 [[place] 1 each PO Q6HR PRN #14 tablet 08/07/21 Unknown Rx 7.5/325] Metoclopramide [Reglan] 10 mg PO ACHS PRN #12 tablet 08/30/21 Unknown Rx diphenhydrAMINE [Benadryl CAP] 25 mg PO QHS PRN #30 capsule 08/30/21 Unknown Rx Nitrofurantoin [place]/M-Cryst 100 mg PO Q12HR #14 capsule 09/04/21 Unknown Rx [Macrobid CAP] Amoxicillin/Potassium Clav 1 each PO BID 10 Days #20 tab 10/31/21 Unknown Rx [Augmentin 875-125 Tablet] ED Physical Exam - General Limitations: No Limitations General appearance: alert, in no apparent distress - Head Head exam: Present: atraumatic, normocephalic - Eye Eye exam: Present: normal appearance - ENT ENT exam: Present: mucous membranes moist - Neck Neck exam: Present: normal inspection - Respiratory Respiratory exam: Present: normal lung sounds bilaterally. Absent: respiratory distress - Cardiovascular Cardiovascular Exam: Present: regular rate, normal rhythm. Absent: systolic murmur, diastolic murmur, rubs, gallop - GI/Abdominal GI/Abdominal exam: Present: soft, normal bowel sounds - Extremities Exam Extremities exam: Present: normal inspection - Expanded Upper Extremity Exam Right Upper Arm exam: Present: tenderness, swelling, erythema, other (mass) - Back Exam Back exam: Present: normal inspection - Neurological Exam Neurological exam: Present: alert, oriented X3 - Psychiatric Psychiatric exam: Present: normal affect, normal mood - Skin Skin exam: Present: warm, dry, intact, normal color. Absent: rash ED Course Vital Signs 10/31/21 05:04 Temperature 99.0 F Pulse Rate 100 H Respiratory 18 Rate Blood Pressure 116/57 O2 Sat by Pulse 97 Oximetry ED Medical Decision Making - Medical Decision Making 25-year-old female presents to the ED complaining abscess noted to the right armpit x3 days. Patient states that she is 14 weeks . She states that she was previous evaluated at [facility] 2 days ago and was not treated for abscess. Patient denies any fever or chills. Patient states she has been applying warm compress to area to expel but unsuccessful. Patient states that pain is 8 out of 10. Patient is alert and oriented x4. . She states she will has an appointment with her BANKRUPTCY LEGAL ASSISTANT on Saturday. Erythema tender mass under the the right axillary area with fluctuant noted she refused to have I&D. We will treat patient with antibiotic. Instructed patient continue to apply warm compress. Discussed discharge planning with patient. Patient verbalized understanding. Critical care attestation.: If time is entered above; I have spent that time in minutes in the direct care of this critically ill patient, excluding procedure time. ED Disposition Clinical Impression: Abscess Disposition: HOME / SELF CARE / HOMELESS Is pt being admited?: No Does the pt Need Aspirin: No Condition: Stable Instructions: Skin Abscess, [id number] Additional Instructions: Appointment with BANKRUPTCY LEGAL ASSISTANT on Saturday Apply warm compress to right arm If you decide to have abscess drained return to the ED or to urgent care center Return for any worsening or new symptoms Prescriptions: Amoxicillin/Potassium Clav [Augmentin 105-658 Tablet] 1 each PO BID 10 Days #20 tab Forms: Work/School Release Form(ED) Time of Disposition: 06:23
[2021-10-31 07:01] VITALS: BP 99/57
== END 2021-10-31 07:02 | disposition home or self-care (01) ==
LOC: ED 03:53
DX: O26.892 Other specified pregnancy related conditions, second trimester (principal); L02.411 Cutaneous abscess of right axilla; Z3A.14 14 weeks gestation of pregnancy; Z79.899 Other long term (current) drug therapy; Z98.890 Other specified postprocedural states; F17.200 Nicotine dependence, unspecified, uncomplicated
CPT/HCPCS: 99282; J3490

== ENCOUNTER 2021-11-28 21:45 | Emergency (ER) | payer MEDICAID ==
[2021-11-28] MEDS ORDERED: MORPHINE 4 MG/1 ML INJ IV ONE (23:48)
[2021-11-28] MEDS ORDERED: ONDANSETRON 4 MG/2 ML INJ IV ONE (23:48)
[2021-11-28] MEDS ORDERED: FAMOTIDINE 20 MG/2 ML INJ IV ONE (23:48)
[2021-11-29 00:59] LABS: Basophils % (Auto) 0.1 % (0.0-1.8); Eosinophils # (Auto) 0.1 K/mm3 (0.0-0.4); Eosinophils % (Auto) 0.7 % (0.0-4.3); Hematocrit 35.9 % (30.3-42.9); Lymphocytes # (Auto) 1.2 K/mm3 (1.2-5.4); Lymphocytes % (Auto) 9.9 % (13.4-35.0); Mean Corpuscular HGB Conc 33 % (30-34); Mean Corpuscular Volume 90 fl (79-97); Monocytes # (Auto) 1.4 K/mm3 (0.0-0.8); Monocytes % (Auto) 11.6 % (0.0-7.3); Platelet Count 361 K/mm3 (140-440); Red Blood Count 3.99 M/mm3 (3.65-5.03); Red Cell Distribution Width 13.2 % (13.2-15.2)
[2021-11-29 01:16] LABS: Alanine Aminotransferase 47 units/L (7-56); Albumin 3.5 g/dL (3.9-5); Blood Urea Nitrogen 5 mg/dL (7-17); Calcium 8.7 mg/dL (8.4-10.2); Hemolysis Index 4
[2021-11-29 01:26] LABS: BUN/Creatinine Ratio 10
[2021-11-29 02:00] LABS: Bacteria,Urine 2+ /HPF (Negative); Bilirubin,Urine NEG (Negative); Blood,Urine SM (Negative); Color,Urine Yellow (Yellow); Hyaline Casts,Urine 2 /LPF; Mucus,Urine FEW /HPF; Urobilinogen,Urine < 2.0 mg/dL (<2.0)
--- NOTE | 2021-11-29 02:21 | Ultrasound Report ---
ULTRASOUND ABDOMEN, LIMITED (RIGHT UPPER QUADRANT) INDICATION / CLINICAL INFORMATION: abdominal pain in . COMPARISON: 08/29/2021 FINDINGS: PANCREAS: Visualized portion shows no significant abnormality. LIVER: No significant abnormality. Normal hepatopedal blood flow in the main portal vein. GALLBLADDER: Cholelithiasis is again noted. The gallbladder is contracted. BILE DUCTS: No significant abnormality. Common bile duct measures 5 mm. FREE FLUID: None. ADDITIONAL FINDINGS: None. IMPRESSION: 1. Cholelithiasis. No acute findings. Signer Name: Keshav Garcia MD Signed: 11/29/2021 2:16 AM Workstation Name: [email or web address]
--- NOTE | 2021-11-29 02:22 | Ultrasound Report ---
OBSTETRIC ULTRASOUND INDICATION: abdominal pain in COMPARISON: No prior relevant imaging studies are available for comparison. TECHNIQUE: Transabdominal imaging was performed. FINDINGS: Single viable intrauterine is identified. lie: Breech. Heart rate: 151 bpm. measurements are as follows: Biparietal diameter 4.1 cm, 18 weeks 3 days Head circumference 14.9 cm, 18 weeks 0 days Abdominal circumference 12.7 cm, 18 weeks 2 days Femur length 2.5 cm, 17 weeks 4 days Amniotic fluid index is subjectively within normal limits. No placental abnormalities are seen. Cerv ix measures 4 cm. CONCLUSION: Single viable intrauterine currently in breech position with sonographic gestational age of 18 weeks 1 day. Amniotic fluid index is within normal limits. Signer Name: Keshav Garcia MD Signed: 11/29/2021 2:17 AM Workstation Name: [email or web address]
[2021-11-29] MEDS ORDERED: MORPHINE 4 MG/1 ML INJ IV ONE (02:26)
[2021-11-29] MEDS ORDERED: PROCHLORPERAZINE EDISYLATE 10 MG/2 ML VIAL IV ONE (02:26)
[2021-11-29] MEDS ORDERED: SODIUM CHLORIDE 0.9% 1000 ML 1,000 ML IV ONE (02:27)
--- NOTE | 2021-11-29 05:13 | Emergency Department Report ---
ED Abdominal Pain HPI - General Chief Complaint: Abdominal Pain Stated Complaint: SOB STOMACH PAIN 19 WKS PREG Source: patient, family Mode of arrival: Ambulatory Limitations: No Limitations - History of Present Illness Initial Comments: Patient is a A0 26-year-old -[place] female who is approximately 18 weeks gestation and who has past medical history of chronic recurrent cholelithiasis presents to the ED with complaint of acute onset persistent epigastric pain that radiates to the right upper quadrant area with nausea and vomiting for the last 2 days, worse in the last 12 hours. Patient states that she has not been able to keep anything down since the onset of the symptoms, and that the pain in the right upper quadrant and epigastric area has worsened. P atient denies dizziness, syncope, fever, chills, diarrhea, dysuria, traumatic injury, vaginal bleeding, vaginal discharge, low back pain, heavy lifting or hematemesis, chest pain or shortness of breath. MD Complaint: abdominal pain (Epigastric pain, right upper quadrant pain) -: Sudden, hour(s) (12) Location: RUQ, epigastric Radiation: RUQ, epigastric Migration to: no migration Severity: severe Severity scale (0 -10): 8 Quality: cramping, sharp Consistency: constant Improves With: nothing Worsens With: eating, vomiting Context: other (Approximately 19 weeks gestation) Associated Symptoms: denies other symptoms, nausea, vomiting. denies: diarrhea, fever, chills, constipation, dysuria, melena, hematuria, anorexia, syncope - Related Data LMP (females 10-50): Previous Rx's Medication Instructions Recorded Last Taken Type Metoclopramide HCl [Reglan TAB] 5 mg PO Q6HR PRN #10 tablet 03/31/18 Unknown Rx Ibuprofen [Children's Motrin] 800 mg PO Q8H PRN #480 ml 03/17/21 Unknown Rx Ondansetron [Zofran Odt] 4 mg PO Q8HR PRN #14 tab.rapdis 07/20/21 Unknown Rx Ibuprofen [Motrin 800 MG tab] 800 mg PO Q8HR PRN #20 tablet 07/21/21 Unknown Rx Ondansetron [Zofran Odt] 4 mg PO Q8HR PRN #15 tab.rapdis 07/21/21 Unknown Rx HYDROcodone/APAP 7.5-325 [[place] 1 each PO Q6HR PRN #14 tablet 08/07/21 Unknown Rx 7.5/325] diphenhydrAMINE [Benadryl CAP] 25 mg PO QHS PRN #30 capsule 08/30/21 Unknown Rx Nitrofurantoin [place]/M-Cryst 100 mg PO Q12HR #14 capsule 09/04/21 Unknown Rx [Macrobid CAP] Amoxicillin/Potassium Clav 1 each PO BID 10 Days #20 tab 10/31/21 Unknown Rx [Augmentin 875-125 Tablet] Acetaminophen [Tylenol] 500 mg PO Q6HR PRN #40 tablet 11/29/21 Unknown Rx Dicyclomine [Bentyl] 20 mg PO QID PRN #40 tablet 11/29/21 Unknown Rx Famotidine [Pepcid] 20 mg PO BID #60 tablet 11/29/21 Unknown Rx Metoclopramide [Reglan TAB] 10 mg PO Q8H PRN #30 tablet 11/29/21 Unknown Rx Allergies Allergy/AdvReac Type Severity Reaction Status Date / Time No Known Allergies Allergy Verified 10/31/21 06:25 ED Review of Systems ROS: Stated complaint: SOB STOMACH PAIN 19 WKS PREG Other details as noted in HPI Constitutional: denies: chills, fever Eyes: denies: eye pain, eye discharge, vision change ENT: denies: ear pain, throat pain Respiratory: denies: cough, shortness of breath, wheezing Cardiovascular: denies: chest pain, palpitations Endocrine: no symptoms reported Gastrointestinal: abdominal pain (Right upper quadrant and epigastric pain), nausea, vomiting. denies: diarrhea Genitourinary: denies: urgency, dysuria, discharge Musculoskeletal: denies: back pain, joint swelling, arthralgia Skin: denies: rash, lesions Neurological: denies: headache, weakness, paresthesias Psychiatric: denies: anxiety, depression Hematological/Lymphatic: denies: easy bleeding, easy bruising ED Past Medical Hx - Past Medical History Previous Medical History?: No Hx Hypertension: No Hx Diabetes: No Hx Deep Vein Thrombosis: No Hx Renal Disease: No Hx Sickle Cell Disease: No Hx Seizures: No Hx Asthma: No Hx HIV: No Additional medical history: Chronic cholelithiasis - Surgical History Past Surgical History?: Yes Additional Surgical History: right arm. d&c - Social History Smoking Status: Never Smoker Substance Use Type: None - Medications Home Medications: Home Medications Medication Instructions Recorded Confirmed Last Taken Type Metoclopramide HCl [Reglan TAB] 5 mg PO Q6HR PRN #10 tablet 03/31/18 Unknown Rx Ibuprofen [Children's Motrin] 800 mg PO Q8H PRN #480 ml 03/17/21 Unknown Rx Ondansetron [Zofran Odt] 4 mg PO Q8HR PRN #14 tab.rapdis 07/20/21 Unknown Rx Ibuprofen [Motrin 800 MG tab] 800 mg PO Q8HR PRN #20 tablet 07/21/21 Unknown Rx Ondansetron [Zofran Odt] 4 mg PO Q8HR PRN #15 tab.rapdis 07/21/21 Unknown Rx HYDROcodone/APAP 7.5-325 [[facility] 1 each PO Q6HR PRN #14 tablet 08/07/21 Unknown Rx 7.5/325] diphenhydrAMINE [Benadryl CAP] 25 mg PO QHS PRN #30 capsule 08/30/21 Unknown Rx Nitrofurantoin [place]/M-Cryst 100 mg PO Q12HR #14 capsule 09/04/21 Unknown Rx [Macrobid CAP] Amoxicillin/Potassium Clav 1 each PO BID 10 Days #20 tab 10/31/21 Unknown Rx [Augmentin 875-125 Tablet] Acetaminophen [Tylenol] 500 mg PO Q6HR PRN #40 tablet 11/29/21 Unknown Rx Dicyclomine [Bentyl] 20 mg PO QID PRN #40 tablet 11/29/21 Unknown Rx Famotidine [Pepcid] 20 mg PO BID #60 tablet 11/29/21 Unknown Rx Metoclopramide [Reglan TAB] 10 mg PO Q8H PRN #30 tablet 11/29/21 Unknown Rx ED Physical Exam - General Limitations: No Limitations General appearance: alert, in no apparent distress - Head Head exam: Present: atraumatic, normocephalic, normal inspection - Eye Eye exam: Present: normal appearance, PERRL, EOMI Pupils: Present: normal accommodation - ENT ENT exam: Present: normal exam, normal orophraynx, mucous membranes moist, TM's normal bilaterally, normal external ear exam - Neck Neck exam: Present: normal inspection, full ROM. Absent: tenderness - Respiratory Respiratory exam: Present: normal lung sounds bilaterally. Absent: respiratory distress, wheezes, rales, stridor, chest wall tenderness, accessory muscle use, decreased breath sounds, prolonged expiratory - Cardiovascular Cardiovascular Exam: Present: normal rhythm, tachycardia, normal heart sounds. Absent: systolic murmur, diastolic murmur, rubs, gallop - GI/Abdominal GI/Abdominal exam: Present: soft, tenderness (Palpable epigastric and right upper quadrant tenderness), normal bowel sounds. Absent: guarding, rebound, hyperactive bowel sounds, hypoactive bowel sounds, organomegaly - Extremities Exam Extremities exam: Present: normal inspection, full ROM, normal capillary refill - Back Exam Back exam: Present: normal inspection, full ROM. Absent: tenderness, CVA tenderness (R), CVA tenderness (L), muscle spasm, paraspinal tenderness, vertebral tenderness - Neurological Exam Neurological exam: Present: alert, oriented X3, CN II-XII intact, normal gait, reflexes normal - Psychiatric Psychiatric exam: Present: normal affect, normal mood - Skin Skin exam: Present: warm, dry, intact, normal color. Absent: rash ED Course Vital Signs 11/28/21 11/29/21 11/29/21 22:49 00:01 03:02 Temperature 99.7 F H Pulse Rate 104 H Respiratory 18 14 16 Rate Blood Pressure 138/68 Blood Pressure [Right] O2 Sat by Pulse 98 Oximetry 11/29/21 03:41 Temperature Pulse Rate 87 Respiratory 16 Rate Blood Pressure Blood Pressure 105/55 [Right] O2 Sat by Pulse 98 Oximetry ED Medical Decision Making - Lab Data Result diagrams: 11/29/21 00:16 11/29/21 00:16 - Radiology Data Radiology results: report reviewed, image reviewed [facility] [address] [place] [address] Ultrasound Report Signed Patient: REJI SANCHEZ MR#: [id number] : 1995 Acct:[id number] Age/Sex: 26 / F ADM Date: 11/28/21 Loc: ED Attending Dr: Ordering Physician: ALEN WHARTON Date of Service: 11/28/21 Procedure(s): US OB >= 14 weeks Fetus Accession Number(s): [id number] cc: ALEN WHARTON OBSTETRIC ULTRASOUND INDICATION: abdominal pain in COMPARISON: No prior relevant imaging studies are available for comparison. TECHNIQUE: Transabdominal imaging was performed. FINDINGS: Single viable intrauterine is identified. lie: Breech. Heart rate: 151 bpm. measurements are as follows: Biparietal diameter 4.1 cm, 18 weeks 3 days Head circumference 14.9 cm, 18 weeks 0 days Abdominal circumference 12.7 cm, 18 weeks 2 days Femur length 2.5 cm, 17 weeks 4 days Amniotic fluid index is subjectively within normal limits. No placental abnormalities are seen. Cervix measures 4 cm. CONCLUSION: Single viable intrauterine currently in breech position with sonographic gestational age of 18 weeks 1 day. Amniotic fluid index is within normal limits. Signer Name: Keshav Garcia MD Signed: 11/29/2021 2:17 AM Workstation Name: [id number] Transcribed By: MATTHEW Dictated By: Keshav Garcia MD Electronically Authenticated By: Keshav Garcia MD Signed Date/Time: 11/29/21216 DD/ 5 TD/TT: --- [address] [address] Ultrasound Report Signed Patient: REJI SANCHEZ MR#: [id number] : 1995 Acct:[id number] Age/Sex: 26 / F ADM Date: 11/28/21 Loc: ED Attending Dr: Ordering Physician: ALEN WHARTON Date of Service: 11/28/21 Procedure(s): US abdomen limited Accession Number(s): [id number] cc: ALEN WHARTON ULTRASOUND ABDOMEN, LIMITED (RIGHT UPPER QUADRANT) INDICATION / CLINICAL INFORMATION: abdominal pain in . COMPARISON: 08/29/2021 FINDINGS: PANCREAS: Visualized portion shows no significant abnormality. LIVER: No significant abnormality. Normal hepatopedal blood flow in the main portal vein. GALLBLADDER: Cholelithiasis is again noted. The gallbladder is contracted. BILE DUCTS: No significant abnormality. Common bile duct measures 5 mm. FREE FLUID: None. ADDITIONAL FINDINGS: None. IMPRESSION: 1. Cholelithiasis. No acute findings. Signer Name: Keshav Garcia MD Signed: 11/29/2021 2:16 AM Workstation Name: [id number] Transcribed By: MATTHEW Dictated By: Keshav Garcia MD Electronically Authenticated By: Keshav Garcia MD Signed Date/Time: 11/29/21215 DD/ 4 TD/TT: - Medical Decision Making This is a A0 26-year-old -[place] female who is approximately 18 weeks gestation and who has past medical history of chronic recurrent cholelithiasis presents to the ED with complaint of acute onset persistent epigastric pain that radiates to the right upper quadrant area with nausea and vomiting for the last 2 days, worse in the last 12 hours. Patient states that she has not been able to keep anything down since the onset of the symptoms, and that the pain in the right upper quadrant and epigastric area has worsened. In the ED, patient is alert and oriented x3 and is not in any distress. Patient was treated for pain in the ED and also given antacids, antiemetics and normal saline 1 L IV bolus x1. Lab test results were reviewed and are all nonacti onable except for acute leukocytosis of 12,000 and mild hyponatremia 132 mmol/L. Gallbladder ultrasound showed cholelithiasis which is unchanged from previous ultrasound exams with no acute findings. Pelvic ultrasound showed a single viable intrauterine currently in breech position with sonographic gestational age of 18 weeks 1 day and heart rate of 151 bpm. Amniotic fluid index is within normal limits. On reevaluation, patient's pain is well controlled medication. Patient has not had any nausea or vomiting while in the ED and passed oral fluid challenge. Patient was discharged home on pain medications and antiemetics as well as antacids and was advised to follow-up with [facility] physician in 5 to 7 days for reevaluation. Patient was also advised to consider following up with the general surgeon on-call Dr. Cesar after she delivers her baby for possible laparoscopic cholecystectomy to remove the gallstones which have been recurrent for a long time. Patient was otherwise advised return to the ED immediately if symptoms get worse. - Differential Diagnosis GERD; cholelithiasis; cholecystitis; UTI; ovarian cyst; kidney stones Critical care attestation.: If time is entered above; I have spent that time in minutes in the direct care of this critically ill patient, excluding procedure time. ED Disposition Clinical Impression: Acute abdominal pain in right upper quadrant, Nausea and vomiting in adult patient, Cholelithiasis without cholecystitis GERD (gastroesophageal reflux disease) Qualifiers: Esophagitis presence: esophagitis presence not specified Qualified Code(s): K21.9 - Gastro-esophageal reflux disease without esophagitis Disposition: 01 HOME / SELF CARE / HOMELESS Is pt being admited?: No Does the pt Need Aspirin: No Condition: Stable Instructions: Abdominal Pain (ED), Nausea and Vomiting, Adult, [id number], Abdominal Pain During , [id number], Cholelithiasis, [id number], Gastroesophageal Reflux Disease, Adult, [id number] Additional Instructions: All lab test results were reviewed and are all nonactionable except for mild hyponatremia 132 mmol/L and leukocytosis of 12,000. Gallbladder ultrasound sh owed cholelithiasis (gallstones) which is unchanged from previous ultrasound exams. No acute findings. Pelvic ultrasound showed a single viable intrauterine currently in breech position with sonographic gestational age of 18 weeks 1 day with heart rate of 151 bpm. Amniotic fluid index is within normal limits. Therefore your symptoms are likely due to persistent gallstones complicated by GERD given your advanced . Therefore take medications as advised, follow-up with your [facility] physician in 5 to 7 days for reevaluation. Consider following up with the general surgeon on-call Dr. Cesar upon delivery of your child. Return to the ED immediately if symptoms get wors e. Prescriptions: Acetaminophen [Tylenol] 500 mg PO Q6HR PRN #40 tablet PRN Reason: Pain , Severe (7-10) Dicyclomine [Bentyl] 20 mg PO QID PRN #40 tablet PRN Reason: cramping pain Famotidine [Pepcid] 20 mg PO BID #60 tablet Metoclopramide [Reglan TAB] 10 mg PO Q8H PRN #30 tablet PRN Reason: Nausea And Vomiting Referrals: RUSSELL FUNG MD [Staff Physician] - as needed CAROL CESAR MD [Staff Physician] - 7-10 days Forms: Work/School Release Form(ED) Time of Disposition: 05:16 Print Language: YORUBA
[2021-11-29 06:08] VITALS: BP 107/55
== END 2021-11-29 05:47 | disposition home or self-care (01) ==
LOC: ED 21:45
DX: O26.892 Other specified pregnancy related conditions, second trimester (principal); R10.11 Right upper quadrant pain; O21.9 Vomiting of pregnancy, unspecified; K80.20 Calculus of gallbladder without cholecystitis without obstruction; O99.612 Diseases of the digestive system complicating pregnancy, second trimester; Z3A.18 18 weeks gestation of pregnancy
CPT/HCPCS: 36415; 76705; 76805; 80053; 81001; 84702; 85025; 96361; 96374; 96375; 96376; 99284; J0780; J2270; J2405; J3490; J7030; Q0162

== ENCOUNTER 2022-02-04 18:24 | Outpatient (CLI) | payer MEDICAID ==
[2022-02-04 20:08] VITALS: BP 119/62
[2022-02-04] MEDS ORDERED: LACTATED RINGERS 500 ML IV ONE (20:22)
== END 2022-02-04 21:51 | disposition home or self-care (01) ==
LOC: TRG 18:24 → LD 19:30 → TRG 21:51
PROVIDERS: ATTEND Obstetrics & Gynecology
DX: O42.912 Preterm premature rupture of membranes, unspecified as to length of time between rupture and onset of labor, second trimester (principal); Z3A.27 27 weeks gestation of pregnancy
CPT/HCPCS: 36415; 59025; 84112